=== PATIENT | male | born 1960 | race Hispanic/Latino ===

== ENCOUNTER 2022-04-16 00:01 | Observation (INO) | payer MEDICARE, SELFPAY ==
[2022-04-16] VITALS (59 sets, daily range): BP systolic 75–250; BP diastolic 46–160; PULSE 59–101; RESP 9–25; TEMP 36.1–36.6; O2SAT 91–99; BMI 34.7
--- NOTE | 2022-04-16 00:31 | ED_ITS ---
HPI - Abdominal Pain General Chief Complaint: Abdominal Pain Stated Complaint: ABD PAINS, CONSTIPATED Time Seen by Provider: 04/16/22 00:20 Source: patient Mode of arrival: Ambulatory History of Present Illness HPI narrative: Patient here for abdominal pain for the past 3 weeks. Patient was at [facility] Emergency Department for 2 days he states a week ago. For the same complaint. He left/eloped because he had difficulties with their staff and ordering food. He did not complete his workup or treatment there. Patient s tates he is having. Difficulty with daily bowel movements. He has to strain a lot to have bowel movement. He does have daily bowel movements though. Abdominal cramping is constant. He tried [id number] laxatives/MiraLax without improvement. Is not on any fiber enhancement. Denies any chest pain. Is not on any pain medications Blood pressure noted. He states this is not uncommon. It waxes and wanes. Denies any chest pain or headache or any neuro complaints at this time. He does have cardiac stents. History of high blood pressure. He states he has been taking his blood pressure medications. Records from [facility] is being requested to fax here for his visit last week in the department. Patient states he has been taking his blood pressure medications. Has not had any changes in his medication regimen. Related Data Allergies Allergy/AdvReac Type Severity Reaction Status Date / Time No Known Drug Allergies Allergy Verified 04/16/22 00:16 Review of Systems Review of Systems Narrative: GENERAL: Denies chills, fatigue, malaise, fever, sweats. HEENT: Denies sinus pain, ear pain, sore throat RESPIRATORY: Denies dyspnea, cough CARDIOVASCULAR: Denies chest pain, palpitations GASTROINTESTINAL: Denies nausea, vomiting, positive for constipation and abdominal pain : Denies dysuria, frequency, hematuria MUSCULOSKELETAL: denies muscle or bony pain SKIN: Denies rash, skin lesions NEUROLOGIC: Denies weakness, numbness ROS Unobtainable: All systems reviewed & are unremarkable except as noted in HPI and below Patient History Social History household members: none Smoking Status: Never smoker alcohol intake: current Smoking Status: Never smoker alcohol intake frequency: 3 or more drinks per day Alcohol type: beer Substance Use Type: does not use Exam Narrative Exam Narrative: GENERAL: in no distress, not toxic not dyspneic HEAD: Normocephalic. EYES: Pupils equal round No scleral icterus. ENT: Mucous membranes moist. NECK: Trachea midline. CARDIOVASCULAR: Regular rate and rhythm without murmurs RESPIRATORY: Clear to auscultation. Breath sounds equal bilaterally. No wheezes, rales, or rhonchi. GASTROINTESTINAL: Abdomen soft, non-tender, abdomen is slightly distended but patient appears to have enlarged pannus at baseline likely. Bowel sounds are present. No peritoneal signs. No pain out of proportion to exam. Abdomen is soft EXTREMITIES: No gross deformities. BACK: No flank tenderness. NEURO: AOx4. SKIN: Warm and dry PSYCH: Not anxious, is cooperative Initial Vital Signs Initial Vital Signs: Vital Signs Pulse Rate 101 H 04/16/22 00:13 Respiratory Rate 20 04/16/22 00:13 Blood Pressure 250/112 H 04/16/22 00:13 Pulse Oximetry 95 04/16/22 00:13 Oxygen Delivery Method 04/16/22 00:13 Course Course Course Narrative: No new issues during course of stay Decision to Admit Date: 04/16/22 Decision to Admit time: 00:59 Orders Ordered: ED Orders 04/16/22 EC echo doppler complete Stat stress [NM ellie perf SPECT rest & str] Stat 04/16/22 00:22 Complete Blood Count AUTO DIFF Stat Comprehensive Metabolic Panel Stat Lipase Stat Magnesium Urgent NT-proBNP (BNP-Adult 18+) Urgent 04/16/22 00:48 CT abdomen pelvis wo con Stat 04/16/22 00:53 XR chest 1V Stat 04/16/22 01:05 COVID19 -Nasal RAPID/Pre-Proc Stat Troponin & CK Cardiac Panel Stat 04/16/22 01:06 EKG-12 Lead Stat 04/16/22 02:45 Troponin & CK Cardiac Panel Stat 04/16/22 04:52 Consult to Tele-adhesive bandage making operator Routine 04/16/22 04:55 Education, smoking cessation ONGOING 04/16/22 04:58 Consult to Dietitian, Adult Routine 04/16/22 04:59 Consult to Discharge Planning Routine 04/16/22 06:05 Prothrombin Time INR Routine Trop I [Troponin I] Routine Acetaminophen (Acetaminophen 325 Mg Tablet) 650 mg PO Q6HR PRN PRN Reason: Fever/Mild Pain (1-3) Al Hydrox/Mg Hydrox/Simethicone (Mag Hydrox/Alum/Simeth 30 Ml Udc) 30 ml PO Q6HR PRN PRN Reason: Dyspepsia Nicardipine HCl 25 mg/ Sodium (Chloride) 250 mls @ 50 mls/hr IV TITRATE JADYN; Protocol Last Admin: 04/16/22 04:21 Dose: 5 mg/hr, 50 mls/hr Documented By: EB Lidocaine (Lidocaine Patch 1 Each Adh..Patch) 1 each TOP DAILY JADYN Last Admin: 04/16/22 04:45 Dose: 1 each Documented By: EB Ondansetron HCl (Ondansetron 4 Mg Odt) 4 mg PO Q8HR PRN PRN Reason: Nausea And Vomiting Discontinued Medications Hydralazine HCl (Hydralazine 20 Mg/Ml Vial) 10 mg IV NOW ONE Stop: 04/16/22 00:58 Last Admin: 04/16/22 01:00 Dose: 10 mg Documented By: EB Hydromorphone HCl (Hydromorphone 0.5 Mg Inj) 0.5 mg IV NOW ONE Stop: 04/16/22 04:38 Last Admin: 04/16/22 04:45 Dose: 0.5 mg Documented By: EB Sodium Chloride (Normal Saline 0.9%) 1,000 mls @ 1,000 mls/hr IV BOLUS ONE Stop: 04/16/22 01:29 Morphine Sulfate (Morphine 4 Mg/Ml Inj) 4 mg IV NOW ONE Stop: 04/16/22 02:49 Last Admin: 04/16/22 02:51 Dose: 4 mg Documented By: EB Nitroglycerin (Nitroglycerin Oint 1 Inch/Gm Oint...G.) 1 inch TOP NOW ONE Stop: 04/16/22 03:50 Last Admin: 04/16/22 03:53 Dose: 1 inch Documented By: DKBonnie Reevaluation(s) Reevaluation #1: Blood pressure improved with hydralazine. 208/93 with pulse of 92. Patient achieving desired MAP goal Time: 02:00 Consultations Consultation #1: Spoke with hospitalist, Wilma Patricio, will admit patient. Meets ICU criteria with Cardene drip Vital Signs Vital signs: Vital Signs - 8 hr 04/16/22 00:13 04/16/22 00:53 04/16/22 00:50 Pulse Rate 101 H 95 H Respiratory Rate 20 Blood Pressure 250/112 H 239/135 H Pulse Oximetry 95 98 Oxygen Delivery Method Room Air 04/16/22 01:00 04/16/22 01:00 04/16/22 01:00 Pulse Rate 89 Respiratory Rate Blood Pressure 235/135 H 235/135 H Pulse Oximetry 97 Oxygen Delivery Method 04/16/22 01:18 04/16/22 01:18 04/16/22 01:30 Pulse Rate 99 H Respiratory Rate Blood Pressure 225/115 H 208/93 H Pulse Oximetry 98 Oxygen Delivery Method 04/16/22 01:30 04/16/22 02:00 04/16/22 02:00 Pulse Rate 92 H 84 Respiratory Rate Blood Pressure 198/105 H Pulse Oximetry 98 96 Oxygen Delivery Method 04/16/22 02:30 04/16/22 02:30 04/16/22 03:53 Pulse Rate 75 74 Respiratory Rate Blood Pressure 190/95 H 210/124 H Pulse Oximetry 95 Oxygen Delivery Method 04/16/22 02:00 04/16/22 03:00 04/16/22 03:00 Pulse Rate 87 85 Respiratory Rate Blood Pressure 198/105 H 189/112 H Pulse Oximetry 96 Oxygen Delivery Method 04/16/22 03:30 04/16/22 03:30 04/16/22 04:00 Pulse Rate 81 Respiratory Rate Blood Pressure 210/124 H 203/160 H Pulse Oximetry 96 Oxygen Delivery Method 04/16/22 04:00 04/16/22 04:30 04/16/22 04:33 Pulse Rate 81 86 Respiratory Rate 24 Blood Pressure 227/121 H Pulse Oximetry 97 98 Oxygen Delivery Method 04/16/22 04:33 04/16/22 04:40 04/16/22 04:40 Pulse Rate 89 85 Respiratory Rate 18 17 Blood Pressure 191/96 H Pulse Oximetry 98 97 Oxygen Delivery Method 04/16/22 05:00 04/16/22 05:00 04/16/22 05:10 Pulse Rate 86 80 Respiratory Rate Blood Pressure 169/101 H Pulse Oximetry 95 95 Oxygen Delivery Method 04/16/22 05:10 04/16/22 05:20 04/16/22 05:20 Pulse Rate 78 Respiratory Rate Blood Pressure 162/100 H 163/98 H Pulse Oximetry 94 Oxygen Delivery Method 04/16/22 05:30 04/16/22 05:30 04/16/22 05:40 Pulse Rate 79 Respiratory Rate Blood Pressure 159/91 H 156/92 H Pulse Oximetry 94 Oxygen Delivery Method 04/16/22 05:40 Pulse Rate 79 Respiratory Rate Blood Pressure Pulse Oximetry 94 Oxygen Delivery Method MDM - Abdominal Pain Differential Diagnosis Differential diagnosis: Likely abdominal pain, constipation, diverticulitis, pancreatitis, small bowel obstruction and other (Hypertensive urgency) Medical Records Medical records narrative: I did review faxed records from [facility] Emergency Department. Patient was there for abdominal pain and right-sided chest pain. Patient did have brief hypotension with IV contrast CT but resolved spontaneously. The concern for patient's extended stay and was actually admitted to hospitalist for hypertensive urgency. There were no beds available and patient was boarded in the emergency department Troponin was slightly elevated at that visit. However likely related to high blood pressure. Lab Data Result diagrams: 04/16/22 00:22 04/16/22 00:22 Labs: Lab Results 04/16/22 04/16/22 04/16/22 Range/Units 00: 00:22 00:22 WBC 7.6 (4.5-11.0) X10^3/uL RBC 5.12 (4.5-5.9) X10^6/uL Hgb 16.2 (13.5-17.5) g/dL Hct 46.0 (41-53) % MCV 89.9 (80-100) fL MCH 31.7 (26-34) PG MCHC 35.3 (30-36) % RDW 13.5 (11.6-14.8) % Plt Count 265 (150-400) X10^3/uL Neut % (Auto) 71.8 (50-75) % Lymph % (Auto) 18.3 L (25-40) % [place] % (Auto) 8.0 (3-14) % Eos % (Auto) 1.3 L (2-4) % Baso % (Auto) 0.6 (0-2) % Neut # (Auto) 5400 (4288-4642) /uL Lymph # (Auto) 1400 (4609-6848) /uL [place] # (Auto) 600 (0-900) /uL Eos # (Auto) 100 (0-450) /uL Baso # (Auto) 0 (0-100) /uL Sodium 138 (137-145) mmol/L Potassium 3.8 (3.4-5.1) mmol/L Chloride 103 (98-107) mmol/L Carbon Dioxide 24 (22-32) mmol/L BUN 20 (9-20) mg/dL Creatinine 0.81 (0.66-1.25) mg/dL Estimated GFR > 60 (>60) mL/min BUN/Creatinine Ratio 24.7 H (6-22) Glucose 167 H (80-110) mg/dL Calcium 8.7 (8.4-10.2) mg/dL Magnesium 2.1 (1.6-2.3) mg/dL Total Bilirubin 0.9 (0.2-1.3) mg/dL AST 54 (17-59) IU/L ALT 68 H (<50) IU/L Alkaline Phosphatase 164 H (38-126) U/L Total Creatine Kinase (55-170) U/L CK-MB (CK-2) CK-MB (CK-2) Rel Index Troponin I (0.01-0.034) ng/mL NT-Pro-B Natriuret Pep (<125) pg/mL Total Protein 7.8 (6.3-8.2) g/dL Albumin 4.5 (3.5-5.0) g/dL Globulin 3.3 (1.7-4.1) g/dL Albumin/Globulin Ratio 1.4 (1.0-2.8) Lipase 73 (23-300) U/L SARS-CoV-2 (PCR) (Negative) 04/16/22 04/16/22 04/16/22 Range/Units 00:22 01:05 01:05 WBC (4.5-11.0) X10^3/uL RBC (4.5-5.9) X10^6/uL Hgb (13.5-17.5) g/dL Hct (41-53) % MCV (80-100) fL MCH (26-34) PG MCHC (30-36) % RDW (11.6-14.8) % Plt Count (150-400) X10^3/uL Neut % (Auto) (50-75) % Lymph % (Auto) (25-40) % [place] % (Auto) (3-14) % Eos % (Auto) (2-4) % Baso % (Auto) (0-2) % Neut # (Auto) (6259-2912) /uL Lymph # (Auto) (1669-4565) /uL [place] # (Auto) (0-900) /uL Eos # (Auto) (0-450) /uL Baso # (Auto) (0-100) /uL Sodium (137-145) mmol/L Potassium (3.4-5.1) mmol/L Chloride (98-107) mmol/L Carbon Dioxide (22-32) mmol/L BUN (9-20) mg/dL Creatinine (0.66-1.25) mg/dL Estimated GFR (>60) mL/min BUN/Creatinine Ratio (6-22) Glucose (80-110) mg/dL Calcium (8.4-10.2) mg/dL Magnesium (1.6-2.3) mg/dL Total Bilirubin (0.2-1.3) mg/dL AST (17-59) IU/L ALT (<50) IU/L Alkaline Phosphatase (38-126) U/L Total Creatine Kinase 97 (55-170) U/L CK-MB (CK-2) TNP CK-MB (CK-2) Rel Index TNP Troponin I 0.035 H (0.01-0.034) ng/mL NT-Pro-B Natriuret Pep 648 H (<125) pg/mL Total Protein (6.3-8.2) g/dL Albumin (3.5-5.0) g/dL Globulin (1.7-4.1) g/dL Albumin/Globulin Ratio (1.0-2.8) Lipase (23-300) U/L SARS-CoV-2 (PCR) Negative (Negative) 04/16/22 Range/Units 02:45 WBC (4.5-11.0) X10^3/uL RBC (4.5-5.9) X10^6/uL Hgb (13.5-17.5) g/dL Hct (41-53) % MCV (80-100) fL MCH (26-34) PG MCHC (30-36) % RDW (11.6-14.8) % Plt Count (150-400) X10^3/uL Neut % (Auto) (50-75) % Lymph % (Auto) (25-40) % [place] % (Auto) (3-14) % Eos % (Auto) (2-4) % Baso % (Auto) (0-2) % Neut # (Auto) (5476-1121) /uL Lymph # (Auto) (4396-9625) /uL [place] # (Auto) (0-900) /uL Eos # (Auto) (0-450) /uL Baso # (Auto) (0-100) /uL Sodium (137-145) mmol/L Potassium (3.4-5.1) mmol/L Chloride (98-107) mmol/L Carbon Dioxide (22-32) mmol/L BUN (9-20) mg/dL Creatinine (0.66-1.25) mg/dL Estimated GFR (>60) mL/min BUN/Creatinine Ratio (6-22) Glucose (80-110) mg/dL Calcium (8.4-10.2) mg/dL Magnesium (1.6-2.3) mg/dL Total Bilirubin (0.2-1.3) mg/dL AST (17-59) IU/L ALT (<50) IU/L Alkaline Phosphatase (38-126) U/L Total Creatine Kinase 92 (55-170) U/L CK-MB (CK-2) TNP CK-MB (CK-2) Rel Index TNP Troponin I 0.041 H (0.01-0.034) ng/mL NT-Pro-B Natriuret Pep (<125) pg/mL Total Protein (6.3-8.2) g/dL Albumin (3.5-5.0) g/dL Globulin (1.7-4.1) g/dL Albumin/Globulin Ratio (1.0-2.8) Lipase (23-300) U/L SARS-CoV-2 (PCR) (Negative) Point of care testing: Urine Dip Bedside Urine Glucose 100 mg/dl Bedside Urine Bilirubin - Negative Bedside Urine Ketone +/- 5 Urine Specific [place] 1.025 Bedside Urine Occult Blood +/- Bedside Urine pH 6 Bedside Urine Protein - Negative Bedside Urine Urobilinogen - Negative Bedside Urine Nitrite - Negative Bedside Urine Leukocytes - Negative Esterase Imaging Data CT scan - abdomen/pelvis: Radiologist's Impression: [place] [id number] CT Scan Report Signed Patient: Morgan Lai MR#: [id number] : 1960 Acct:[id number] Age/Sex: 62 / M Date of Service: 04/16/22 Loc: ED Accession Number: [id number] ?? Procedure: CT abdomen pelvis wo con Ordering Provider: Raghu Shi MD PROCEDURE:? CT ABDOMEN PELVIS WO CON ? INDICATIONS:? Abdominal pain ? TECHNIQUE:? Axial sections were acquired from the lung bases to the pubic symphysis.? Coronal and sagittal reformats were performed.? For radiation dose reduction, the following was used: ?automated exposure control, adjustment of mA and/or kV according to patient size.? ? COMPARISON:? [facility], CT, CT ABDOMEN PELVIS WITH CONTRAST, 04/09/2022, 8:28. ? FINDINGS:? Image quality:? Excellent.? ? Lung bases:? There is mild scarring in the left lung base. Heart:? Heart is normal in size. ? ? ABDOMEN: Liver:? Noncontrast evaluation of the liver demonstrates no discrete hepatic mass. Gallbladder:? Within normal limits without calcified gallstones.? ? Biliary ducts:? No biliary ductal dilatation.? ? Pancreas:? Unremarkable.? ? Spleen:? Normal in size.? ? Adrenal Glands:? No adrenal nodules.? ? Kidneys and Ureters:? No hydronephrosis.? A small cortical cyst is redemo nstrated within the right kidney.? There is mild focal renal cortical thinning in the left kidney with associated curvilinear dystrophic calcifications.? Findings are consistent with sequelae of prior infection, trauma, or infarct.? ? Stomach and Bowel:? Stomach, small bowel loops, and colon are normal in caliber and wall thickness.? No evidence of appendicitis.? There is colonic diverticulosis wi thout acute diverticulitis.? Peritoneum:? No abnormal intraperitoneal fluid.? No free air.? ? Ventral Wall: ? A small fat-containing umbilical hernia is redemonstrated. Abdominal Nodes:? No retroperitoneal or mesenteric adenopathy by size criteria.? Vessels:? Aorta and inferior vena cava are normal in size.? ? PELVIS: Pelvic Organs:? Unremarkable.? ? Bladder:? Unremarkable.? ? Pelvic Nodes: No enlarged lymph nodes.? Miscellaneous: No inguinal hernias are seen. ? ? ? Bones:? Visualized osseous structures demonstrate no suspicious focal lesions. IMPRESSION:? ? 1. No definite acute intra-abdominal abnormality.? Specifically, no evidence of nephrolithiasis or obstructive uropathy. ? 2. No evidence of acute appendicitis. ? 3. Small fat-containing umbilical hernia redemonstrated.? Dictated by: Keith Miranda M.D. on 04/16/2022 at 1:34 ? ? Approved by: Ketih Miranda M.D. on 04/16/2022 at 1:39 ? Chest x-ray: Radiologist's Impression: [address] [id number] XRay Report Signed Patient: Morgan Lai MR#: [id number] : 1960 Acct:[id number] Age/Sex: 62 / M Date of Service: 04/16/22 Loc: ED Accession Number: [id number] ?? Procedure: XR chest 1V Ordering Provider: Raghu Shi MD PROCEDURE:? XR CHEST 1V ? INDICATIONS:? chest pain ? TECHNIQUE:? One view of the chest was acquired.? ? COMPARISON:? [facility], CR, XR CHEST 1 VIEW, 10/30/2019, 21:18.? [facility], CR, XR CHEST 1 VIEW, 11/07/2020, 4:12.? [facility], CT, CT ANGIO CHEST PE, 10/30/2019, 22:35.? [facility], CR, XR CHEST 1 VIEW, 04/09/2022, 9:11. ? FINDINGS:? ? Surgical changes and devices:? None.? ? Lungs and pleura:? There is a nodular oval opacity projecting over the left upper lung zone measuring up to 1.4 cm redemonstrated.? Findings are similar compared to the prior studies.? No pleural effusions or pneumothorax.? ? Mediastinum:? Mediastinal contours appear normal.? Heart size is normal.? ? Bones and chest wall:? No suspicious bony lesions.? Overlying soft tissues appear unremarkable.? ? IMPRESSION:? ? 1. No definite acute cardiopulmonary disease. ? 2. Nodular opacity in the left upper lung zone appears similar to the prior studies. ? ? Dictated by: Keith Miranda M.D. on 04/16/2022 at 1:44 ? ? Approved by: Keith Miranda M.D. on 04/16/2022 at 1:54 ? ECG Data Interpretation: Normal sinus rhythm rate [address] elevation MDM Narrative Medical decision making narrative: Appropriate for admission for hypertensive urgency. Patient left against medical advice a week ago from [facility] Emergency Department. Recommendations for blood pressure control at the time by hospitalist with hydralazine 10 mg dosing. Patient does agree for admit. Patient has significant coronary artery disease history. Review of patient's troponin. This is patient's baseline. This result is the same as at [facility] week ago. Likely due to high blood pressure and not coronary. Patient meeting criteria for ICU with Maricruz bullard Critical Care Time Critical Care Time Total Critical Care Time: 35 Attestation: Critical Care Time 35 minutes: Critical care time is separate from other billable procedures. This critical care time includes consultation with family and other consulting doctors, review of records, and interpretation of data from labs, EKGs, imaging, etc. Discharge Plan Departure Patient Disposition: Admitted as Observation Clinical Impression: Hypertensive urgency, Abdominal pain Admit Date/Time: 04/16/22 05:44 Admit Provider: Wilma Patricio
[2022-04-16 00:42] LABS: Alanine Aminotransferase 68 IU/L (<50); Albumin 4.5 g/dL (3.5-5.0); Albumin Globulin Ratio 1.4 (1.0-2.8); Alkaline Phosphatase 164 U/L (38-126); Aspartate Aminotransferase 54 IU/L (17-59); BUN Creatinine Ratio 24.7 (6-22); Bilirubin Total 0.9 mg/dL (0.2-1.3); Blood Urea Nitrogen 20 mg/dL (9-20); Calcium 8.7 mg/dL (8.4-10.2); Carbon Dioxide 24 mmol/L (22-32); Chloride 103 mmol/L (98-107); Estimated Glomerular Filt Rate > 60 mL/min (>60); Globulin 3.3 g/dL (1.7-4.1); Glucose 167 mg/dL (80-110); HEMOLYSIS 44 (0-50); Lipase 73 U/L (23-300); Potassium 3.8 mmol/L (3.4-5.1); Sodium 138 mmol/L (137-145); Total Protein 7.8 g/dL (6.3-8.2)
[2022-04-16 00:43] LABS: Add Manual Diff / Slide Review NO; Basophils Absolute Auto 0 /uL (0-100); Basophils Percent Auto 0.6 % (0-2); Eosinophils Absolute Auto 100 /uL (0-450); Eosinophils Percent Auto 1.3 % (2-4); Hemoglobin 16.2 g/dL (13.5-17.5); Lymphocytes Absolute Auto 1400 /uL (1100-4500); Lymphocytes Percent Auto 18.3 % (25-40); Mean Corpuscular HGB Conc 35.3 % (30-36); Mean Corpuscular Hemoglobin 31.7 PG (26-34); Mean Corpuscular Volume 89.9 fL (80-100); Monocytes Absolute Auto 600 /uL (0-900); Neutrophils Absolute Auto 5400 /uL (1500-7000); Neutrophils Percent Auto 71.8 % (50-75); Platelet Count 265 X10^3/uL (150-400); Red Blood Cell Count 5.12 X10^6/uL (4.5-5.9); Red Cell Distribution Width 13.5 % (11.6-14.8); White Blood Cell Count 7.6 X10^3/uL (4.5-11.0)
--- NOTE | 2022-04-16 00:48 | DI.CT.S_ITS ---
PROCEDURE: CT ABDOMEN PELVIS WO CON INDICATIONS: Abdominal pain TECHNIQUE: Axial sections were acquired from the lung bases to the pubic symphysis. Coronal and sagittal reformats were performed. For radiation dose reduction, the following was used: automated exposure control, adjustment of mA and/or kV according to patient size. COMPARISON: [facility], CT, CT ABDOMEN PELVIS WITH CONTRAST, 04/09/2022, 8:28. FINDINGS: Image quality: Excellent. Lung bases: There is mild scarring in the left lung base. Heart: Heart is normal in size. ABDOMEN: Liver: Noncontrast evaluation of the liver demonstrates no discrete hepatic mass. Gallbladder: Within normal limits without calcified gallstones. Biliary ducts: No biliary ductal dilatation. Pancreas: Unremarkable. Spleen: Normal in size. Adrenal Glands: No adrenal nodules. Kidneys and Ureters: No hydronephrosis. A small cortical cyst is redemonstrated within the right kidney. There is mild focal renal cortical thinning in the left kidney with associated curvilinear dystrophic calcifications. Findings are consistent with sequelae of prior infection, trauma, or infarct. Stomach and Bowel: Stomach, small bowel loops, and colon are normal in caliber and wall thickness. No evidence of appendicitis. There is colonic diverticulosis without acute diverticulitis. Peritoneum: No abnormal intraperitoneal fluid. No free air. Ventral Wall: A small fat-containing umbilical hernia is redemonstrated. Abdominal Nodes: No retroperitoneal or mesenteric adenopathy by size criteria. Vessels: Aorta and inferior vena cava are normal in size. PELVIS: Pelvic Organs: Unremarkable. Bladder: Unremarkable. Pelvic Nodes: No enlarged lymph nodes. Miscellaneous: No inguinal hernias are seen. Bones: Visualized osseous structures demonstrate no suspicious focal lesions. IMPRESSION: 1. No definite acute intra-abdominal abnormality. Specifically, no evidence of nephrolithiasis or obstructive uropathy. 2. No evidence of acute appendicitis. 3. Small fat-containing umbilical hernia redemonstrated. Dictated by: Keith Miranda M.D. on 04/16/2022 at 1:34 Approved by: Keith Miranda M.D. on 04/16/2022 at 1:39
--- NOTE | 2022-04-16 00:53 | DI.RAD.S_ITS ---
PROCEDURE: XR CHEST 1V INDICATIONS: chest pain TECHNIQUE: One view of the chest was acquired. COMPARISON: [facility], CR, XR CHEST 1 VIEW, 10/30/2019, 21:18. [facility], CR, XR CHEST 1 VIEW, 11/07/2020, 4:12. [facility], CT, CT ANGIO CHEST PE, 10/30/2019, 22:35. [facility], CR, XR CHEST 1 VIEW, 04/09/2022, 9:11. FINDINGS: Surgical changes and devices: None. Lungs and pleura: There is a nodular oval opacity projecting over the left upper lung zone measuring up to 1.4 cm redemonstrated. Findings are similar compared to the prior studies. No pleural effusions or pneumothorax. Mediastinum: Mediastinal contours appear normal. Heart size is normal. Bones and chest wall: No suspicious bony lesions. Overlying soft tissues appear unremarkable. IMPRESSION: 1. No definite acute cardiopulmonary disease. 2. Nodular opacity in the left upper lung zone appears similar to the prior studies. Dictated by: Keith Miranda M.D. on 04/16/2022 at 1:44 Approved by: Keith Miranda M.D. on 04/16/2022 at 1:54
--- NOTE | 2022-04-16 00:54 | PC.NURSE ---
Friend Angelaandie anderson phone number: [phone]
[2022-04-16] MEDS: HYDRALAZINE 20 MG/ML VIAL 10 MG IV (01:00)
[2022-04-16 01:21] LABS: Creatine Kinase 97 U/L (55-170)
[2022-04-16 01:34] LABS: Troponin I 0.035 ng/mL (0.01-0.034)
[2022-04-16 01:57] LABS: COVID19 -Nasal RAPID Negative (Negative)
[2022-04-16] MEDS: MORPHINE 4 MG/ML INJ IV (02:51)
[2022-04-16 03:13] LABS: Creatine Kinase 92 U/L (55-170)
[2022-04-16 03:26] LABS: Troponin I 0.041 ng/mL (0.01-0.034)
[2022-04-16] MEDS: NITROGLYCERIN OINT 1 INCH/GM OINT...G. TOP (03:53)
[2022-04-16] MEDS: NICARDIPINE 25 MG in SODIUM CHLORIDE 0.9% 240 ML 50 MG IV (04:21)
[2022-04-16] MEDS: HYDROMORPHONE 0.5 MG INJ IV (04:45)
[2022-04-16] MEDS: LIDOCAINE PATCH 1 EACH ADH..PATCH TOP ×2 (04:45→08:56)
[2022-04-16 05:25] LABS: Magnesium 2.1 mg/dL (1.6-2.3)
[2022-04-16 05:34] LABS: NT-proBNP (BNP-Adult 18+) 648 pg/mL (<125)
[2022-04-16 06:26] LABS: INR 1.1 (0.9-1.3); Prothrombin Time 12.5 SECONDS (10.1-12.7)
[2022-04-16 06:41] LABS: Troponin I 0.047 ng/mL (0.01-0.034)
--- NOTE | 2022-04-16 06:58 | PC.NURSE ---
Patient admitted to Room 231 via [place] from ED. Nicardipine drip infusing at 5 mg/hr SBP greater than 200 and MAP 133. Goal MAP 126. Patient states pain medication given in ED was not very helpful with reducing pain. Patient alert and oriented x3. Patient oriented to hospital routine, equipment and policies. Lidocaine patch in place to R abdomen.
[2022-04-16] MEDS: lisinopriL 20 MG TABLET 40 MG PO (08:56)
[2022-04-16] MEDS: polyethylene glycoL 3350 17 GM POWD.PACK PO (08:56)
[2022-04-16] MEDS: BISACODYL 5 MG TABLET PO (08:57)
[2022-04-16] MEDS: OXYCODONE IR 10 MG TABLET PO ×2 (08:57→20:46)
--- NOTE | 2022-04-16 10:36 | PM.HP.1 ---
History of Present Illness History of Present Illness Date Patient Seen: 04/16/22 Time Patient Seen: 10:36 Chief complaint: ABD PAINS, CONSTIPATED Narrative: This is a 62-year-old male with a past medical history of CAD, hypertension who presented to the emergency room with epigastric and right upper quadrant pain over the past 3 weeks. Patient states that his symptoms started after a fall 3 weeks ago where he fell and landed in a hole on his back. He describes the as intermittent, sharp but also band like over his epigastrium. There is no radiation into his neck or jaw and is not associated with any substernal chest pain or chest pressure. He denies any palpitations, nausea, vomiting, diaphoresis, or lightheadedness. He reports previous visits to emergency rooms with elevated BP for the same symptoms. Prior evaluations per review include negative radiographs of his right ribs and abdomen on March 25, and unremarkable x-rays of his chest, ribs, thoracic spine, and an unremarkable CT abdomen pelvis on April 09. He states symptoms have continued. He states his BP is always high at home around 180 to 200. He states he takes his home medications regularly. In the emergency room here the patient had a an unremarkable CT of his abdomen pelvis again, and a chest x-ray that showed no acute pathology. In the emergency room he was hypertensive, but the remainder of his vital signs were unremarkable. He was given a single dose of hydralazine which did not help his BP improve, he was also given some pain medications. He was quickly started on a nicardipine infusion and admitted to the ICU. After my evaluation, I re-ordered an oral BP medication and stopped cardene infusion given no obvious signs of hypertensive emergency. EKG does show some ST depressions but these are unchanged on repeat and no prior tracings were available for review. Troponin did increase slightly but still in intermediate range at 0.04 and patient without symptoms other than epigastric / RUQ abdominal pain which was reproducible on exam. Patient History Medical History (Updated 04/16/22 @ 10:38 by Amor Mcnamara DO) CAD (coronary artery disease) HTN (hypertension) Surgical History (Updated 04/16/22 @ 10:38 by Amor Mcnamara DO) H/O heart artery stent History of appendectomy Family & Social History Family History (Updated 04/16/22 @ 10:39 by Amor Mcnamara DO) Brother Diabetes mellitus Father Diabetes mellitus Mother Diabetes mellitus Social History: household members none Prior Living Arrangements Mobile home Safety & Behavioral: Feels Safe in Current Yes Environment Been Physically Hurt or No Threatened By a Person Tobacco & Substance use: Smoking Status Never smoker alcohol intake current alcohol intake frequency 3 or more drinks per day Substance Use Type does not use Meds Home Medications and Allergies Home Medications Medication Instructions Recorded Confirmed Type amlodipine 10 mg PO DAILY 04/16/22 04/16/22 History aspirin 325 mg tablet 325 mg PO DAILY 04/16/22 04/16/22 History atorvastatin 80 mg tablet 80 mg PO DAILY 04/16/22 04/16/22 History chlorthalidone 12.5 mg PO DAILY 04/16/22 04/16/22 History clopidogrel 75 mg PO DAILY 04/16/22 04/16/22 History gabapentin 300 mg tablet 300 mg PO TID 04/16/22 04/16/22 History glipizide 10 mg tablet 10 mg PO BID 04/16/22 04/16/22 History isosorbide mononitrate 30 mg 30 mg PO DAILY 04/16/22 04/16/22 History tablet,extended release 24 hr losartan 50 mg tablet 50 mg PO DAILY 04/16/22 04/16/22 History metformin 500 mg tablet 1,000 mg PO BID 04/16/22 04/16/22 History metoprolol succinate 100 mg 100 mg PO BID 04/16/22 04/16/22 History tablet,extended release 24 hr nitroglycerin 0.4 mg sublingual 0.4 mg sublingual Q5M PRN Chest 04/16/22 04/16/22 History tablet (Nitrostat) Pain pantoprazole 40 mg tablet,delayed 40 mg PO DAILY 04/16/22 04/16/22 History release Allergies Allergy/AdvReac Type Severity Reaction Status Date / Time No Known Drug Allergies Allergy Verified 04/16/22 00:16 Review of Systems Review of Systems Narrative: All other systems reviewed with the patient and are negative unless otherwise stated. Exam Vital Signs (past 8 hours): - 04/16/22 03:53 04/16/22 03:00 04/16/22 03:00 Temperature Pulse Rate 74 85 Respiratory Rate Blood Pressure 210/124 H 189/112 H Pulse Oximetry 96 04/16/22 03:30 04/16/22 03:30 04/16/22 04:00 Temperature Pulse Rate 81 Respiratory Rate Blood Pressure 210/124 H 203/160 H Pulse Oximetry 96 04/16/22 04:00 04/16/22 04:30 04/16/22 04:33 Temperature Pulse Rate 81 86 Respiratory Rate 24 Blood Pressure 227/121 H Pulse Oximetry 97 98 04/16/22 04:33 04/16/22 04:40 04/16/22 04:40 Temperature Pulse Rate 89 85 Respiratory Rate 18 17 Blood Pressure 191/96 H Pulse Oximetry 98 97 04/16/22 05:00 04/16/22 05:00 04/16/22 05:10 Temperature Pulse Rate 86 80 Respiratory Rate Blood Pressure 169/101 H Pulse Oximetry 95 95 04/16/22 05:10 04/16/22 05:20 04/16/22 05:20 Temperature Pulse Rate 78 Respiratory Rate Blood Pressure 162/100 H 163/98 H Pulse Oximetry 94 04/16/22 05:30 04/16/22 05:30 04/16/22 05:40 Temperature Pulse Rate 79 Respiratory Rate Blood Pressure 159/91 H 156/92 H Pulse Oximetry 94 04/16/22 05:40 04/16/22 05:59 04/16/22 05:59 Temperature Pulse Rate 79 92 H Respiratory Rate 20 Blood Pressure 228/112 H Pulse Oximetry 94 99 04/16/22 06:00 04/16/22 06:03 04/16/22 06:03 Temperature Pulse Rate 92 H 91 H Respiratory Rate 15 19 Blood Pressure 208/98 H Pulse Oximetry 99 97 04/16/22 06:15 04/16/22 06:15 04/16/22 06:30 Temperature 97.8 F Pulse Rate 86 Respiratory Rate 15 Blood Pressure 188/93 H 183/82 H Pulse Oximetry 96 04/16/22 06:30 04/16/22 06:45 04/16/22 06:45 Temperature Pulse Rate 83 83 Respiratory Rate 19 20 Blood Pressure 169/91 H Pulse Oximetry 96 94 04/16/22 07:00 04/16/22 07:15 04/16/22 07:30 Temperature Pulse Rate 80 79 81 Respiratory Rate 16 19 19 Blood Pressure 172/89 H 171/87 H Pulse Oximetry 94 94 94 04/16/22 07:31 04/16/22 08:00 04/16/22 08:56 Temperature 97.5 F L Pulse Rate 80 77 Respiratory Rate 21 Blood Pressure 150/72 H 158/70 H Pulse Oximetry 94 04/16/22 07:45 04/16/22 08:00 04/16/22 08:15 Temperature Pulse Rate 86 78 72 Respiratory Rate 16 13 17 Blood Pressure 166/87 H 152/84 H 158/74 H Pulse Oximetry 96 96 94 04/16/22 08:30 04/16/22 08:45 04/16/22 09:00 Temperature Pulse Rate 87 82 82 Respiratory Rate 15 16 18 Blood Pressure 159/73 H 158/70 H 151/65 H Pulse Oximetry 97 93 94 04/16/22 09:15 04/16/22 09:30 04/16/22 09:30 Temperature Pulse Rate 75 67 Respiratory Rate 15 14 Blood Pressure 116/49 L 99/46 L Pulse Oximetry 93 94 04/16/22 09:45 04/16/22 09:45 Temperature Pulse Rate 79 Respiratory Rate 18 Blood Pressure 96/52 L Pulse Oximetry 96 Oxygen Delivery Method Room Air Narrative Exam Narrative: General:? Patient is well developed and well nourished, in no distress at this time. HEENT:? Normocephalic, atraumatic, extraocular muscles intact, oral pharynx is clear and mucous membranes are moist. Neck: supple and symmetric, trachea is midline, no cervical adenopathy. Negative for JVD Chest:? Normal AP diameter and contour without kyphoscoliosis, no tachypnea, equal chest rise bilaterally. Lungs:? CTA b/l no wheezing rhonchi or rales. Cardio:?RRR no m/r/g. Abdomen:soft, mild distension, RUQ and point lateral tenderness over ribs with reproducible pain. Musculoskeletal:? Muscle strength and tone are equal within normal limits, no deformity. Extremities: No edema or joint effusions. No cyanosis or clubbing. Skin:? Pale,? Warm to touch,dry and intact without rashes, ulcerations or petechiae.? Neuro:? Alert and orientated x3,? sensation to touch intact in all extremities, no gross deficits noted of cranial nerves. Psych:? Patient has a well-kept appearance, appropriate affect, mental status attitude thought context and judgment are appropriate for age. Objective ECG Impression: Sinus rhythm. LVH with TWI in inferior leads and V5/6. Unchanged on repeat study as interpreted by me. Labs Result Diagrams: 04/16/22 00:22 04/16/22 00:22 Labs: Laboratory Results - last 24 hr 04/16/22 04/16/22 04/16/22 00:22 00:22 00:22 WBC 7.6 RBC 5.12 Hgb 16.2 Hct 46.0 MCV 89.9 MCH 31.7 MCHC 35.3 RDW 13.5 Plt Count 265 Neut % (Auto) 71.8 Lymph % (Auto) 18.3 L [place] % (Auto) 8.0 Eos % (Auto) 1.3 L Baso % (Auto) 0.6 Neut # (Auto) 5400 Lymph # (Auto) 1400 [place] # (Auto) 600 Eos # (Auto) 100 Baso # (Auto) 0 PT INR Sodium 138 Potassium 3.8 Chloride 103 Carbon Dioxide 24 BUN 20 Creatinine 0.81 Estimated GFR > 60 BUN/Creatinine Ratio 24.7 H Glucose 167 H Calcium 8.7 Magnesium 2.1 Total Bilirubin 0.9 AST 54 ALT 68 H Alkaline Phosphatase 164 H Total Creatine Kinase CK-MB (CK-2) CK-MB (CK-2) Rel Index Troponin I NT-Pro-B Natriuret Pep Total Protein 7.8 Albumin 4.5 Globulin 3.3 Albumin/Globulin Ratio 1.4 Lipase 73 SARS-CoV-2 (PCR) 04/16/22 04/16/22 04/16/22 00:22 01:05 01:05 WBC RBC Hgb Hct MCV MCH MCHC RDW Plt Count Neut % (Auto) Lymph % (Auto) [place] % (Auto) Eos % (Auto) Baso % (Auto) Neut # (Auto) Lymph # (Auto) [place] # (Auto) Eos # (Auto) Baso # (Auto) PT INR Sodium Potassium Chloride Carbon Dioxide BUN Creatinine Estimated GFR BUN/Creatinine Ratio Glucose Calcium Magnesium Total Bilirubin AST ALT Alkaline Phosphatase Total Creatine Kinase 97 CK-MB (CK-2) TNP CK-MB (CK-2) Rel Index TNP Troponin I 0.035 H NT-Pro-B Natriuret Pep 648 H Total Protein Albumin Globulin Albumin/Globulin Ratio Lipase SARS-CoV-2 (PCR) Negative 04/16/22 04/16/22 04/16/22 02:45 06:05 06:05 WBC RBC Hgb Hct MCV MCH MCHC RDW Plt Count Neut % (Auto) Lymph % (Auto) [place] % (Auto) Eos % (Auto) Baso % (Auto) Neut # (Auto) Lymph # (Auto) [place] # (Auto) Eos # (Auto) Baso # (Auto) PT 12.5 INR 1.1 Sodium Potassium Chloride Carbon Dioxide BUN Creatinine Estimated GFR BUN/Creatinine Ratio Glucose Calcium Magnesium Total Bilirubin AST ALT Alkaline Phosphatase Total Creatine Kinase 92 CK-MB (CK-2) TNP CK-MB (CK-2) Rel Index TNP Troponin I 0.041 H 0.047 H NT-Pro-B Natriuret Pep Total Protein Albumin Globulin Albumin/Globulin Ratio Lipase SARS-CoV-2 (PCR) Assessment & Plan Assessment & Plan narrative: 1. Intractable abdominal pain - check RUQ ultrasound, possibly biliary. Given mild rise in elevated troponin low likelihood of ACS given stable EKG tracing. Pain is reproducible as well suggesting musculoskeletal cause, also happened after a trauma. - multiple prior imaging studies without rib or other bony fractures on 03/25 and again on 04/09 at OSH. - No obvious injuries on imaging here - another possibilty may be GERD, gastroparesis or GI - possible constipation as well, start laxitive therapy. 2. Elevated troponin - likely in setting of hypertension with known CAD previously. - continue to trend until downtrending. - EKG does have some TWI but given history of CAD, no chest pain, and repeat study without changes this is likely chronic. 3. Essential hypertension - likely elevated BP in setting of pain, work on pain control and continue home medications. He is on 4 antihypertensive classes at home. - continue to adjust as needed. 4. Type 2 diabetes - check FS ACHS and provide sliding scale coverage for now, unknown control at this time. 5. CAD - continue home medications. Code: Full, surrogate is Clifford Lai DVT: Low risk, patient ambulatory Dispo: Admit observation, probable discharge home Time Spent With Patient Critical Care time: I spent a total of [] minutes of critical care time on this patient's care today; this time is exclusive of procedural time. Quality MIPS - Admit I confirm the patient?s Advance Care Plan is present, Code status is documented, Surrogate decision maker is in patient?s record [If Yes, STOP here]: Yes
[2022-04-16] MEDS: PANTOPRAZOLE DR 20 MG TABLET PO (12:09)
[2022-04-16] MEDS: HYDROMORPHONE 1 MG INJ IV ×3 (13:41→21:26)
--- NOTE | 2022-04-16 13:55 | DI.US.S_ITS ---
PROCEDURE: US ABDOMEN LIMITED INDICATIONS: RUQ PAIN TECHNIQUE: Real-time scanning was performed of the abdominal and retroperitoneal organs, with image documentation. COMPARISON: None. FINDINGS: Liver: The liver measures 19.0 cm in length and demonstrates increased echogenicity. Gallbladder: The gallbladder wall measures 1.5 mm in diameter. No stones, sludge, pericholecystic fluid, or sonographic Schultz sign. Biliary ducts: Intrahepatic bile ducts are non-dilated. The common hepatic duct measures 5.9 mm in diameter. The common bile duct was not visualized. Pancreas: The pancreas was not visualized due to bowel gas. IMPRESSION: 1. Increased hepatic echogenicity noted likely related to fatty infiltration of the liver but other sources of hepatocellular disease cannot be excluded. 2. No cholelithiasis or findings to suggest choledocholithiasis or acute cholecystitis. Of note, the common bile duct was not visualized. Dictated by: Rola Sotelo M.D. on 04/16/2022 at 16:41 Approved by: Rola Sotelo M.D. on 04/16/2022 at 16:43
[2022-04-16] MEDS: GABAPENTIN 300 MG CAPSULE PO ×2 (15:05→20:48)
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
[2022-04-16] MEDS: INSULIN LISPRO 100 UNIT/ML 3ML VIAL SUBCUT (17:33)
[2022-04-16] MEDS: SENNOSIDES 8.6 MG TABLET 17.2 MG PO (20:46)
[2022-04-16] MEDS: METOPROLOL ER 50 MG TABLET 100 MG PO (20:47)
[2022-04-16] MEDS: METOCLOPRAMIDE HCL 10 MG TABLET PO (20:48)
[2022-04-16] MEDS: SODIUM CHLORIDE 0.9% FLUSH 10 ML IV (20:54)
[2022-04-17] VITALS (7 sets, daily range): BP systolic 98–151; BP diastolic 55–98; PULSE 56–80; RESP 12–20; TEMP 36.7; O2SAT 95–100
[2022-04-17 05:14] LABS: Alanine Aminotransferase 50 IU/L (<50); Albumin 3.6 g/dL (3.5-5.0); Albumin Globulin Ratio 1.3 (1.0-2.8); Alkaline Phosphatase 120 U/L (38-126); Aspartate Aminotransferase 38 IU/L (17-59); BUN Creatinine Ratio 22.2 (6-22); Bilirubin Total 0.6 mg/dL (0.2-1.3); Blood Urea Nitrogen 22 mg/dL (9-20); Calcium 8.6 mg/dL (8.4-10.2); Carbon Dioxide 25 mmol/L (22-32); Chloride 102 mmol/L (98-107); Estimated Glomerular Filt Rate > 60 mL/min (>60); Globulin 2.7 g/dL (1.7-4.1); Glucose 243 mg/dL (80-110); HEMOLYSIS < 15 (0-50); Potassium 3.8 mmol/L (3.4-5.1); Sodium 134 mmol/L (137-145); Total Protein 6.3 g/dL (6.3-8.2)
[2022-04-17 05:23] LABS: Add Manual Diff / Slide Review NO; Basophils Absolute Auto 0 /uL (0-100); Basophils Percent Auto 0.6 % (0-2); Eosinophils Absolute Auto 200 /uL (0-450); Eosinophils Percent Auto 2.6 % (2-4); Hematocrit 41.1 % (41-53); Hemoglobin 14.6 g/dL (13.5-17.5); Lymphocytes Absolute Auto 1600 /uL (1100-4500); Lymphocytes Percent Auto 24.2 % (25-40); Mean Corpuscular HGB Conc 35.5 % (30-36); Mean Corpuscular Volume 90.1 fL (80-100); Monocytes Absolute Auto 500 /uL (0-900); Monocytes Percent Auto 7.8 % (3-14); Neutrophils Absolute Auto 4400 /uL (1500-7000); Neutrophils Percent Auto 64.8 % (50-75); Platelet Count 246 X10^3/uL (150-400); Red Blood Cell Count 4.56 X10^6/uL (4.5-5.9); Red Cell Distribution Width 13.1 % (11.6-14.8); White Blood Cell Count 6.8 X10^3/uL (4.5-11.0)
[2022-04-17] MEDS: HYDROMORPHONE 1 MG INJ IV (05:37)
[2022-04-17 05:42] LABS: Hemoglobin A1C% w Est Avg Glu 7.3 % (4.0-6.0)
[2022-04-17] MEDS: PANTOPRAZOLE DR 20 MG TABLET PO (06:27)
[2022-04-17] MEDS: INSULIN LISPRO 100 UNIT/ML 3ML VIAL SUBCUT ×2 (08:10→12:12)
[2022-04-17] MEDS: ATORVASTATIN 20 MG TABLET 80 MG PO (08:23)
[2022-04-17] MEDS: METOPROLOL ER 50 MG TABLET 100 MG PO (08:23)
[2022-04-17] MEDS: AMLODIPINE 5 MG TABLET 10 MG PO (08:23)
[2022-04-17] MEDS: ASPIRIN 325 MG TABLET PO (08:24)
[2022-04-17] MEDS: ISOSORBIDE MONONITRATE ER 30 MG TABLET PO (08:24)
[2022-04-17] MEDS: LIDOCAINE PATCH 1 EACH ADH..PATCH TOP (08:24)
[2022-04-17] MEDS: polyethylene glycoL 3350 17 GM POWD.PACK PO (08:24)
[2022-04-17] MEDS: GABAPENTIN 300 MG CAPSULE PO (08:24)
[2022-04-17] MEDS: LOSARTAN 50 MG TABLET PO (08:24)
[2022-04-17] MEDS: CLOPIDOGREL 75 MG TABLET PO (08:24)
[2022-04-17] MEDS: SODIUM CHLORIDE 0.9% FLUSH 10 ML IV (08:36)
[2022-04-17] MEDS: METOCLOPRAMIDE HCL 10 MG TABLET PO ×2 (08:55→11:58)
[2022-04-17] MEDS: CYCLOBENZAPRINE 10 MG TABLET PO (09:16)
[2022-04-17] MEDS: OXYCODONE IR 10 MG TABLET 15 MG PO ×2 (09:16→11:58)
--- NOTE | 2022-04-17 12:42 | P.DS_ITS ---
History of Present Illness History of Present Illness Date Patient Seen: 04/17/22 Chief complaint: ABD PAINS, CONSTIPATED Narrative: This is a 62-year-old male with a past medical history of CAD, hypertension who presented to the emergency room with epigastric and right upper quadrant pain over the past 3 weeks. Patient states that his symptoms started after a fall 3 weeks ago where he fell and landed in a hole on his back. He describes the as intermittent, sharp but also band like over his epigastrium. There is no radiation into his neck or jaw and is not associated with any substernal chest pain or chest pressure. He denies any palpitations, nausea, vomiting, diaphoresis, or lightheadedness. He reports previous visits to emergency rooms with elevated BP for the same symptoms. Prior evaluations per review include negative radiographs of his right ribs and abdomen on March 25, and unremarkable x-rays of his chest, ribs, thoracic spine, and an unremarkable CT abdomen pelvis on April 09. He states symptoms have continued. He states his BP is always high at home around 180 to 200. He states he takes his home medications regularly. In the emergency room here the patient had a an unremarkable CT of his abdomen pelvis again, and a chest x-ray that showed no acute pathology. In the emergency room he was hypertensive, but the remainder of his vital signs were unre markable. He was given a single dose of hydralazine which did not help his BP improve, he was also given some pain medications. He was quickly started on a nicardipine infusion and admitted to the ICU. After my evaluation, I re-ordered an oral BP medication and stopped cardene infusion given no obvious signs of hypertensive emergency. EKG does show some ST depressions but these are unchanged on repeat and no prior tracings were available for review. Troponin did increase slightly but still in intermediate range at 0.04 and patient without symptoms other than epigastric / RUQ abdominal pain which was reproducible on exam. Discharge Providers Provider Date of admission: 04/16/22 05:44 Discharge Date: 04/17/22 Consults: 04/16/22 04:52 Consult to Tele-hotel maintenance engineer Routine Comment: boarding in ED-lisy bullard Consulting Provider: [employer] Reason for consultation: Chief Pharmacist services Has provider been notified: No 04/16/22 04:58 Consult to Dietitian, Adult Routine Comment: Reason For Exam: BMI 34.8 04/16/22 04:59 Consult to Discharge Planning Routine Comment: Discharge provider: Amor Mcnamara DO Summary Hospital Course Discharge Diagnosis: 1. Intractable abdominal pain 2. Elevated troponin 3. Essential hypertension ? 4. Type 2 diabetes 5. CAD Hospital Course: This is a 62 year old male with PMH of HTN, DM2, CAD who presented with 3 weeks of continued abdominal pain. He was also quite hypertensive. The emergency room provider started the patient on a nicardipine infusion, this was discontinued on arrival to the floor given low likelihood of hypertensive emergency. His BP quickly improved with pain control and resuming his home antihypertensives. No obvious source of his pain could be found after evaluation with CT scan, RUQ US. Possibilities include biliary dyskinesia, gastroparesis, but his signs and symptoms most likely fit with a fractured rib after a recent trauma or musculoskeletal pain. Review of OSH imaging revealed no acute fractures on XR R rib series (done twice) so no further imaging was obtained here. He improved with oral pain medications and was discharged home. Metoclopramide did not seemingly help with his symptoms either. He was ambulatory and tolerating a diet at the time of discharge. Further evaluation with his PCP is recommended as an outpatient. Time Spent with Patient Time spent: Greater than 30 minutes Exam Vital Signs (past 8 hours): - 04/17/22 07:00 04/17/22 08:23 04/17/22 08:24 Temperature Pulse Rate 80 80 Respiratory Rate Blood Pressure 150/90 H 150/90 H Pulse Oximetry Oxygen Delivery Method Room Air Oxygen Flow Rate 04/17/22 08:00 04/17/22 09:27 04/17/22 12:00 Temperature 98.1 F Pulse Rate 61 63 56 L Respiratory Rate 15 20 Blood Pressure 151/98 H 114/63 98/55 L Pulse Oximetry 98 100 Oxygen Delivery Method Oxygen Flow Rate 0 Oxygen Delivery Method Room Air Oxygen Flow Rate 0 Narrative Exam Narrative: General:? Patient is well developed and well nourished, in no distress at this time. HEENT:? Normocephalic, atraumatic, extraocular muscles intact, oral pharynx is clear and mucous membranes are moist. Neck: supple and symmetric, trachea is midline, no cervical adenopathy. Negative for JVD Chest:? Normal AP diameter and contour without kyphoscoliosis, no tachypnea, equal chest rise bilaterally. Lungs:? CTA b/l no wheezing rhonchi or rales. Cardio:?RRR no m/r/g. Abdomen:soft, mild distension, RUQ and point lateral tenderness over ribs with reproducible pain. Musculoskeletal:? Muscle strength and tone are equal within normal limits, no deformity. Extremities: No edema or joint effusions. No cyanosis or clubbing. Skin:? Pale,? Warm to touch,dry and intact without rashes, ulcerations or petechiae.? Neuro:? Alert and orientated x3,? sensation to touch intact in all extremities, no gross deficits noted of cranial nerves. Psych:? Patient has a well-kept appearance, appropriate affect, mental status attitude thought context and judgment are appropriate for age. Objective Labs Result Diagrams: 04/17/22 04:05 04/17/22 04:05 Labs: Laboratory Results - last 24 hr 04/16/22 04/17/22 04/17/22 12:35 04:05 04:05 WBC 6.8 RBC 4.56 Hgb 14.6 Hct 41.1 MCV 90.1 MCH 32.0 MCHC 35.5 RDW 13.1 Plt Count 246 Neut % (Auto) 64.8 Lymph % (Auto) 24.2 L [place] % (Auto) 7.8 Eos % (Auto) 2.6 Baso % (Auto) 0.6 Neut # (Auto) 4400 Lymph # (Auto) 1600 [place] # (Auto) 500 Eos # (Auto) 200 Baso # (Auto) 0 Sodium Potassium Chloride Carbon Dioxide BUN Creatinine Estimated GFR BUN/Creatinine Ratio Glucose Hemoglobin A1c 7.3 H Calcium Total Bilirubin AST ALT Alkaline Phosphatase Troponin I 0.040 H Total Protein Albumin Globulin Albumin/Globulin Ratio 04/17/22 04:05 WBC RBC Hgb Hct MCV MCH MCHC RDW Plt Count Neut % (Auto) Lymph % (Auto) [place] % (Auto) Eos % (Auto) Baso % (Auto) Neut # (Auto) Lymph # (Auto) [place] # (Auto) Eos # (Auto) Baso # (Auto) Sodium 134 L Potassium 3.8 Chloride 102 Carbon Dioxide 25 BUN 22 H Creatinine 0.99 Estimated GFR > 60 BUN/Creatinine Ratio 22.2 H Glucose 243 H Hemoglobin A1c Calcium 8.6 Total Bilirubin 0.6 AST 38 ALT 50 H Alkaline Phosphatase 120 Troponin I Total Protein 6.3 Albumin 3.6 Globulin 2.7 Albumin/Globulin Ratio 1.3 PFSH Medical History (Updated 04/16/22 @ 10:38 by Amor Mcnamara DO) CAD (coronary artery disease) HTN (hypertension) Surgical History (Updated 04/16/22 @ 10:38 by Amor Mcnamara DO) H/O heart artery stent History of appendectomy Family History (Updated 04/16/22 @ 10:39 by Amor Mcnamara DO) Brother Diabetes mellitus Father Diabetes mellitus Mother Diabetes mellitus Social History household members: none Smoking Status: Never smoker alcohol intake: current Discharge Plan Discharge Plan Patient Disposition: Home Provider Discharge Comment: You were admitted to the hospital with Right sided abdominal or chest wall pain. The exact etiology could not be found. It acts much like a rib fracture though you've had two negative xrays. Pain medications were prescribed, please follow up with your primary care provider for further evaluation. Discharge orders & Medications Prescriptions: New acetaminophen 325 mg Tablet 650 mg PO Q6HR PRN (Reason: Fever/Mild Pain (1-3)) 30 Days Qty: 90 0RF oxycodone 15 mg tablet 15 mg PO Q4H PRN (Reason: pain) 7 Days Qty: 30 0RF lidocaine 4 % adhesive patch,medicated 1 patch topical DAILY PRN (Reason: pain) 15 Days Qty: 15 0RF Continued losartan 50 mg Tablet 50 mg PO DAILY metformin 500 mg Tablet 1,000 mg PO BID atorvastatin 80 mg Tablet 80 mg PO DAILY aspirin 325 mg Tablet 325 mg PO DAILY glipizide 10 mg Tablet 10 mg PO BID isosorbide mononitrate 30 mg Tablet Extended Release 24 Hr 30 mg PO DAILY metoprolol succinate 100 mg Tablet Extended Release 24 Hr 100 mg PO BID pantoprazole 40 mg Tablet,Delayed Release (Dr/Ec) 40 mg PO DAILY nitroglycerin [Nitrostat] 0.4 mg Tablet, Sublingual 0.4 mg sublingual Q5M PRN (Reason: Chest Pain) gabapentin 300 mg Tablet 300 mg PO TID amlodipine 10 mg tablet 10 mg PO DAILY chlorthalidone 25 MG tablet 12.5 mg PO DAILY clopidogrel 75 mg tablet 75 mg PO DAILY Diet/Activity/Treatments Diet: Diet as Tolerated Activity: As tolerated Visit Report/Discharge Packet Instructions: DI for Prescription Opioid Use Discharge Data Attending Provider: Wilma Patricio
--- NOTE | 2022-04-17 13:15 | PC.NURSE ---
Discharge information given to patient, dressed and ambulating in room without difficulty. IV's removed.
--- NOTE | 2022-04-17 14:55 | CM.DPNOTE ---
DC Note DC home today, close outpatient f/u recommended. No needs identified from this CM team JW
== END 2022-04-17 14:07 | disposition home or self-care (01) ==
LOC: ED 00:59 → ICU 05:52 → AC 15:20
PROVIDERS: Internal Medicine; Admitting Provider Nurse Practitioner Family; Emergency Provider Emergency Medicine; Referring Provider Emergency Medicine; Visit Provider Nurse Practitioner Family
DX: R10.9 Unspecified abdominal pain (principal); K59.00 Constipation, unspecified; R77.8 Other specified abnormalities of plasma proteins; I10 Essential (primary) hypertension; I25.10 Atherosclerotic heart disease of native coronary artery without angina pectoris; E11.9 Type 2 diabetes mellitus without complications; Z79.84 Long term (current) use of oral hypoglycemic drugs; Z20.822 Contact with and (suspected) exposure to COVID-19
CPT/HCPCS: 36415; 71045; 74176; 76705; 80053; 81003; 82550; 82962; 83036; 83690; 83735; 83880; 84484; 85025; 85610; 87635; 93005; 93010; 96365; 96366; 96372; 96375; 96376; 99284; 99285; 99291; C9803; G0378; J0360; J1170; J1815; J2270

== ENCOUNTER 2022-07-07 14:57 | Observation (INO) | payer MEDICARE, SELFPAY ==
[2022-04-16 05:53] VITALS: BMI 34.7
[2022-07-07] VITALS (92 sets, daily range): BP systolic 153–277; BP diastolic 87–149; PULSE 56–98; RESP 11–32; TEMP 36.6–36.7; O2SAT 93–99; BMI 34.3
--- NOTE | 2022-07-07 15:06 | DI.RAD.S_ITS ---
PROCEDURE: XR CHEST 1V INDICATIONS: chest pain TECHNIQUE: One view of the chest was acquired. COMPARISON: [facility], CR, XR CHEST 1V, 04/16/2022, 1:09. FINDINGS: Surgical changes and devices: Low anterior cervical fusion. Lungs and pleura: Lungs are clear. No pleural effusions or pneumothorax. Mediastinum: Mediastinal contours appear normal. Heart size is normal. Bones and chest wall: No suspicious bony lesions. Overlying soft tissues appear unremarkable. IMPRESSION: No acute process. Dictated by: Roman Elaine M.D. on 07/07/2022 at 15:47 Approved by: Roman Elaine M.D. on 07/07/2022 at 15:48
--- NOTE | 2022-07-07 15:09 | DI.CT.S_ITS ---
PROCEDURE: CT HEAD/BRAIN WO CON INDICATIONS: HTN and headache TECHNIQUE: Noncontrast 4.5 mm thick angled axial sections acquired from the foramen magnum to the vertex, with coronal and sagittal reformats. For radiation dose reduction, the following was used: automated exposure control, adjustment of mA and/or kV according to patient size. COMPARISON: [facility], MR, MR BRAIN WITHOUT CONTRAST, 07/02/2021, 7:23. FINDINGS: Image quality: Excellent. CSF spaces: Basal cisterns are patent. No extra-axial fluid collections. The ventricles are symmetric in size and shape. Brain: No intracranial bleeds or masses. There is cerebral volume loss for age, with resultant ventricular and sulcal prominence. There are periventricular and deep white matter chronic small vessel ischemic changes. There is intracranial internal carotid artery atherosclerosis. Skull and face: Calvarium and visualized facial bones appear intact, without suspicious lesions. Sinuses: Visualized sinuses and mastoids are clear. IMPRESSION: 1. No acute intracranial abnormality. Dictated by: Roman Elaine M.D. on 07/07/2022 at 16:09 Transcribed by: LESLY on 07/07/2022 at 16:10 Approved by: Roman Elaine M.D. on 07/07/2022 at 16:16
--- NOTE | 2022-07-07 15:09 | ED.GENADULT ---
HPI - General Adult General Chief complaint: Hypertension Stated complaint: BP extremely high Time Seen by Provider: 07/07/22 15:08 Source: patient Mode of arrival: Ambulatory Limitations: no limitations History of Present Illness HPI narrative: Patient is a 62-year-old male who is here for evaluation of a headache and chest discomfort and also high blood pressure. He has a history of high blood pressure. Is on medications. States he is taking his blood pressure at home. He states that he frequently has a systolic blood pressure in the 180s to 200s. Earlier today he had a onset of a headache. Describes it in the front of his head. Some blurry vision but he thinks that is because of the pain. He is also having some chest discomfort. This started about the same time as his headache. He is also having abdominal pain but this has been going on for some time. He has been admitted in the past because of high blood pressure. States last time he was admitted there were no changes made to his medications. No lower extremity swelling. No shortness of breath. Has not tried anything for his symptoms. Related Data Home Medications Medication Instructions Recorded Confirmed amlodipine 10 mg PO DAILY 04/16/22 04/16/22 aspirin 325 mg tablet 325 mg PO DAILY 04/16/22 04/16/22 atorvastatin 80 mg tablet 80 mg PO DAILY 04/16/22 04/16/22 chlorthalidone 12.5 mg PO DAILY 04/16/22 04/16/22 clopidogrel 75 mg PO DAILY 04/16/22 04/16/22 gabapentin 300 mg tablet 300 mg PO TID 04/16/22 04/16/22 glipizide 10 mg tablet 10 mg PO BID 04/16/22 04/16/22 isosorbide mononitrate 30 mg 30 mg PO DAILY 04/16/22 04/16/22 tablet,extended release 24 hr losartan 50 mg tablet 50 mg PO DAILY 04/16/22 04/16/22 metformin 500 mg tablet 1,000 mg PO BID 04/16/22 04/16/22 metoprolol succinate 100 mg 100 mg PO BID 04/16/22 04/16/22 tablet,extended release 24 hr nitroglycerin 0.4 mg sublingual 0.4 mg sublingual Q5M PRN Chest 04/16/22 04/16/22 tablet (Nitrostat) Pain pantoprazole 40 mg tablet,delayed 40 mg PO DAILY 04/16/22 04/16/22 release Allergies Allergy/AdvReac Type Severity Reaction Status Date / Time No Known Drug Allergies Allergy Verified 07/07/22 15:15 Review of Systems Review of Systems ROS Unobtainable: All systems reviewed & are unremarkable except as noted in HPI and below Patient History Medical History CAD (coronary artery disease) HTN (hypertension) Surgical History (Updated 04/16/22 @ 10:38 by Amor Mcnamara DO) H/O heart artery stent History of appendectomy Family History (Updated 04/16/22 @ 10:39 by Amor Mcnamara DO) Brother Diabetes mellitus Father Diabetes mellitus Mother Diabetes mellitus Social History household members: none Smoking Status: Never smoker alcohol intake: current Smoking Status: Never smoker alcohol intake frequency: 3 or more drinks per day Alcohol type: beer Substance Use Type: does not use Exam Initial Vital Signs Initial Vital Signs: Vital Signs Temperature 98.0 F 07/07/22 14:58 Pulse Rate 96 H 07/07/22 14:58 Respiratory Rate 18 07/07/22 14:58 Blood Pressure 265/140 H 07/07/22 14:58 Pulse Oximetry 96 07/07/22 14:58 Oxygen Delivery Method 07/07/22 14:58 Const General: cooperative, comfortable and No ill appearing HENDC Head: normal to inspection and normocephalic Face and sinus: normal facial exam Resp Effort & Inspection: normal respiratory effort Auscultation: clear to auscultation bilaterally Cardio Rate: regular rate Rhythm: regular rhythm GI Inspection: normal to inspection Palpation: soft, No firm, No guarding and tender (Mild generalized tenderness) Skin General: no rashes or lesions noted Neuro General: patient alert, patient awake, patient oriented x3 and moves all extremities Cognition: normal cognition Speech: speech normal Extrem General: No edema Psych Appearance: grossly normal and well kempt Course Orders Ordered: ED Orders 07/07/22 15:06 XR chest 1V Stat EKG-12 Lead Stat 07/07/22 15:08 Complete Blood Count AUTO DIFF Stat Comprehensive Metabolic Panel Stat Lipase Stat Magnesium Stat Troponin & CK Cardiac Panel Stat 07/07/22 15:09 CT head/brain wo con Stat 07/07/22 19:49 COVID19 -Nasal RAPID/Pre-Proc Stat 07/07/22 19:52 Urine Drug Screen, Rapid Stat Discontinued Medications Diphenhydramine HCl (Diphenhydramine 50 Mg/Ml Vial) 25 mg IV NOW ONE Stop: 07/07/22 16:09 Last Admin: 07/07/22 16:19 Dose: 25 mg Documented By: SAEED Hydralazine HCl (Hydralazine 20 Mg/Ml Vial) 10 mg IV Q6HR PRN PRN Reason: Hypertension Hydralazine HCl (Hydralazine 20 Mg/Ml Vial) 10 mg IV NOW ONE Stop: 07/07/22 19:14 Last Admin: 07/07/22 19:19 Dose: 10 mg Documented By: SAEED Hydromorphone HCl (Hydromorphone 1 Mg Inj) 1 mg IV NOW ONE Stop: 07/07/22 18:59 Last Admin: 07/07/22 19:14 Dose: 1 mg Documented By: SAEED Labetalol HCl (Labetalol 20 Mg/4 Ml Syringe) 10 mg IV NOW ONE Stop: 07/07/22 15:10 Last Admin: 07/07/22 15:14 Dose: 10 mg Documented By: SAEED Metoclopramide HCl (Metoclopramide 10 Mg/2 Ml Inj) 10 mg IV NOW ONE Stop: 07/07/22 16:09 Last Admin: 07/07/22 16:22 Dose: 10 mg Documented By: SAEED Morphine Sulfate (Morphine 4 Mg/Ml Inj) 4 mg IV NOW ONE Stop: 07/07/22 15:10 Last Admin: 07/07/22 15:19 Dose: 4 mg Documented By: SAEED Vital Signs Vital signs: Vital Signs - 8 hr 07/07/22 15:03 07/07/22 15:04 07/07/22 15:04 Temperature Pulse Rate 94 H 94 H Respiratory Rate 15 23 Blood Pressure 267/142 H Pulse Oximetry 96 96 Oxygen Delivery Method 07/07/22 15:05 07/07/22 15:06 07/07/22 15:06 Temperature Pulse Rate 98 H 98 H Respiratory Rate 23 21 Blood Pressure 277/143 H Pulse Oximetry 96 96 Oxygen Delivery Method 07/07/22 14:58 07/07/22 15:08 07/07/22 15:08 Temperature 98.0 F Pulse Rate 96 H 96 H Respiratory Rate 18 21 Blood Pressure 265/140 H 254/149 H Pulse Oximetry 96 96 Oxygen Delivery Method Room Air Room Air 07/07/22 15:10 07/07/22 15:15 07/07/22 15:19 Temperature Pulse Rate 91 H 85 78 Respiratory Rate 21 19 29 H Blood Pressure Pulse Oximetry 97 96 93 Oxygen Delivery Method Room Air Room Air Room Air 07/07/22 15:19 07/07/22 15:20 07/07/22 15:21 Temperature Pulse Rate 69 69 Respiratory Rate 23 22 Blood Pressure 212/108 H Pulse Oximetry 96 94 Oxygen Delivery Method Room Air Room Air 07/07/22 15:21 07/07/22 15:25 07/07/22 15:25 Temperature Pulse Rate 72 Respiratory Rate 20 Blood Pressure 216/116 H 202/101 H Pulse Oximetry 94 Oxygen Delivery Method Room Air 07/07/22 15:36 07/07/22 15:37 07/07/22 15:37 Temperature Pulse Rate 69 71 Respiratory Rate 19 20 Blood Pressure 212/135 H Pulse Oximetry 97 96 Oxygen Delivery Method Room Air Room Air 07/07/22 15:40 07/07/22 15:41 07/07/22 15:41 Temperature Pulse Rate 72 71 Respiratory Rate 16 24 Blood Pressure 212/114 H Pulse Oximetry 96 96 Oxygen Delivery Method Room Air Room Air 07/07/22 15:50 07/07/22 15:50 07/07/22 15:55 Temperature Pulse Rate 69 Respiratory Rate 22 Blood Pressure 210/120 H 200/107 H Pulse Oximetry 97 Oxygen Delivery Method 07/07/22 15:55 07/07/22 16:00 07/07/22 16:00 Temperature Pulse Rate 66 66 Respiratory Rate 21 18 Blood Pressure 196/106 H Pulse Oximetry 97 96 Oxygen Delivery Method Room Air 07/07/22 16:05 07/07/22 16:05 07/07/22 16:10 Temperature Pulse Rate 67 Respiratory Rate 18 Blood Pressure 193/104 H 196/109 H Pulse Oximetry 96 Oxygen Delivery Method 07/07/22 16:10 07/07/22 16:15 07/07/22 16:15 Temperature Pulse Rate 67 65 Respiratory Rate 20 17 Blood Pressure 177/98 H Pulse Oximetry 97 96 Oxygen Delivery Method 07/07/22 16:20 07/07/22 16:21 07/07/22 16:21 Temperature Pulse Rate 65 63 Respiratory Rate 20 17 Blood Pressure 199/100 H Pulse Oximetry 97 97 Oxygen Delivery Method 07/07/22 16:25 07/07/22 16:25 07/07/22 16:30 Temperature Pulse Rate 64 Respiratory Rate 19 Blood Pressure 195/102 H 196/106 H Pulse Oximetry 97 Oxygen Delivery Method 07/07/22 16:30 07/07/22 16:35 07/07/22 16:35 Temperature Pulse Rate 67 63 Respiratory Rate 19 16 Blood Pressure 193/111 H Pulse Oximetry 97 98 Oxygen Delivery Method 07/07/22 16:40 07/07/22 16:40 07/07/22 16:45 Temperature Pulse Rate 62 Respiratory Rate 16 Blood Pressure 168/95 H 176/99 H Pulse Oximetry 96 Oxygen Delivery Method 07/07/22 16:45 07/07/22 16:50 07/07/22 16:50 Temperature Pulse Rate 61 60 Respiratory Rate 14 14 Blood Pressure 165/92 H Pulse Oximetry 97 96 Oxygen Delivery Method 07/07/22 16:55 07/07/22 16:55 07/07/22 17:00 Temperature Pulse Rate 60 Respiratory Rate 15 Blood Pressure 160/87 H 161/90 H Pulse Oximetry 96 Oxygen Delivery Method 07/07/22 17:00 07/07/22 17:05 07/07/22 17:05 Temperature Pulse Rate 59 L 59 L Respiratory Rate 15 17 Blood Pressure 153/88 H Pulse Oximetry 96 96 Oxygen Delivery Method Room Air 07/07/22 17:10 07/07/22 17:10 07/07/22 17:15 Temperature Pulse Rate 59 L Respiratory Rate 14 Blood Pressure 155/90 H 161/92 H Pulse Oximetry 96 Oxygen Delivery Method 07/07/22 17:15 07/07/22 17:20 07/07/22 17:20 Temperature Pulse Rate 58 L 58 L Respiratory Rate 14 15 Blood Pressure 165/91 H Pulse Oximetry 96 96 Oxygen Delivery Method 07/07/22 17:25 07/07/22 17:25 07/07/22 17:30 Temperature Pulse Rate 58 L Respiratory Rate 13 Blood Pressure 162/90 H 166/93 H Pulse Oximetry 96 Oxygen Delivery Method 07/07/22 17:30 07/07/22 17:35 07/07/22 17:36 Temperature Pulse Rate 57 L 58 L 58 L Respiratory Rate 13 16 15 Blood Pressure Pulse Oximetry 96 98 99 Oxygen Delivery Method 07/07/22 17:36 07/07/22 17:40 07/07/22 17:40 Temperature Pulse Rate 57 L Respiratory Rate Blood Pressure 185/105 H 187/106 H Pulse Oximetry 98 Oxygen Delivery Method 07/07/22 17:45 07/07/22 17:45 07/07/22 17:50 Temperature Pulse Rate 58 L Respiratory Rate 11 L Blood Pressure 189/107 H 190/100 H Pulse Oximetry 98 Oxygen Delivery Method 07/07/22 17:50 07/07/22 17:55 07/07/22 17:55 Temperature Pulse Rate 58 L 56 L Respiratory Rate 15 13 Blood Pressure 178/100 H Pulse Oximetry 98 97 Oxygen Delivery Method 07/07/22 18:00 07/07/22 18:00 07/07/22 18:05 Temperature Pulse Rate 56 L 62 Respiratory Rate 13 15 Blood Pressure 174/100 H Pulse Oximetry 97 98 Oxygen Delivery Method Room Air 07/07/22 18:06 07/07/22 18:06 07/07/22 18:10 Temperature Pulse Rate 60 Respiratory Rate Blood Pressure 204/100 H 201/104 H Pulse Oximetry 98 Oxygen Delivery Method 07/07/22 18:10 07/07/22 18:15 07/07/22 18:15 Temperature Pulse Rate 61 58 L Respiratory Rate 13 Blood Pressure 196/105 H Pulse Oximetry 98 99 Oxygen Delivery Method 07/07/22 18:20 07/07/22 18:20 07/07/22 18:25 Temperature Pulse Rate 60 Respiratory Rate 19 Blood Pressure 194/103 H 182/97 H Pulse Oximetry 98 Oxygen Delivery Method 07/07/22 18:25 07/07/22 18:30 07/07/22 18:30 Temperature Pulse Rate 60 61 Respiratory Rate 16 15 Blood Pressure 188/100 H Pulse Oximetry 98 98 Oxygen Delivery Method Room Air 07/07/22 18:35 07/07/22 18:35 07/07/22 18:40 Temperature Pulse Rate 62 Respiratory Rate 18 Blood Pressure 195/110 H 197/110 H Pulse Oximetry 99 Oxygen Delivery Method 07/07/22 18:40 07/07/22 18:45 07/07/22 18:46 Temperature Pulse Rate 60 68 70 Respiratory Rate 19 17 21 Blood Pressure Pulse Oximetry 98 99 99 Oxygen Delivery Method 07/07/22 18:46 07/07/22 18:50 07/07/22 18:51 Temperature Pulse Rate 67 65 Respiratory Rate 22 21 Blood Pressure 225/118 H Pulse Oximetry 99 99 Oxygen Delivery Method 07/07/22 18:51 07/07/22 18:55 07/07/22 18:56 Temperature Pulse Rate 62 Respiratory Rate 20 Blood Pressure 217/116 H 215/109 H Pulse Oximetry 98 Oxygen Delivery Method 07/07/22 18:56 07/07/22 19:19 07/07/22 19:00 Temperature Pulse Rate 61 60 Respiratory Rate 20 Blood Pressure 181/100 H 206/100 H Pulse Oximetry 98 Oxygen Delivery Method Room Air 07/07/22 19:00 07/07/22 19:05 07/07/22 19:05 Temperature Pulse Rate 59 L 59 L Respiratory Rate 18 17 Blood Pressure 198/99 H Pulse Oximetry 98 98 Oxygen Delivery Method Room Air Room Air 07/07/22 19:10 07/07/22 19:10 07/07/22 19:15 Temperature Pulse Rate 58 L Respiratory Rate 16 Blood Pressure 195/104 H 195/110 H Pulse Oximetry 98 Oxygen Delivery Method 07/07/22 19:15 07/07/22 19:20 07/07/22 19:20 Temperature Pulse Rate 59 L 60 Respiratory Rate 16 14 Blood Pressure 181/100 H Pulse Oximetry 99 98 Oxygen Delivery Method 07/07/22 19:23 07/07/22 19:23 07/07/22 19:25 Temperature Pulse Rate 62 Respiratory Rate 14 Blood Pressure 184/96 H 182/96 H Pulse Oximetry 97 Oxygen Delivery Method 07/07/22 19:25 07/07/22 19:28 07/07/22 19:28 Temperature Pulse Rate 62 65 Respiratory Rate 17 18 Blood Pressure 184/103 H Pulse Oximetry 97 97 Oxygen Delivery Method 07/07/22 19:30 07/07/22 19:31 07/07/22 19:31 Temperature Pulse Rate 76 81 Respiratory Rate 26 H Blood Pressure 196/138 H Pulse Oximetry 97 97 Oxygen Delivery Method 07/07/22 19:35 07/07/22 19:36 07/07/22 19:36 Temperature Pulse Rate 64 66 Respiratory Rate 22 19 Blood Pressure 189/103 H Pulse Oximetry 97 97 Oxygen Delivery Method 07/07/22 19:40 07/07/22 19:41 07/07/22 19:41 Temperature Pulse Rate 76 78 Respiratory Rate 23 22 Blood Pressure 222/118 H Pulse Oximetry 98 97 Oxygen Delivery Method 07/07/22 19:45 07/07/22 19:46 07/07/22 19:46 Temperature Pulse Rate 74 72 Respiratory Rate 18 18 Blood Pressure 199/106 H Pulse Oximetry 98 98 Oxygen Delivery Method Room Air Medical Decision Making Lab Data Lab results reviewed: Yes I reviewed the patient's lab results. Result diagrams: 07/07/22 15:08 07/07/22 15:08 Labs: Lab Results 07/07/22 07/07/22 Range/Units 15:08 15:08 WBC 7.6 (4.5-11.0) X10^3/uL RBC 5.51 (4.5-5.9) X10^6/uL Hgb 17.1 (13.5-17.5) g/dL Hct 49.4 (41-53) % MCV 89.6 (80-100) fL MCH 31.1 (26-34) PG MCHC 34.7 (30-36) % RDW 14.3 (11.6-14.8) % Plt Count 224 (150-400) X10^3/uL Neut % (Auto) 67.4 (50-75) % Lymph % (Auto) 24.0 L (25-40) % [place] % (Auto) 7.4 (3-14) % Eos % (Auto) 0.6 L (2-4) % Baso % (Auto) 0.6 (0-2) % Neut # (Auto) 5200 (4705-6446) /uL Lymph # (Auto) 1800 (5856-7144) /uL [place] # (Auto) 600 (0-900) /uL Eos # (Auto) 0 (0-450) /uL Baso # (Auto) 0 (0-100) /uL Sodium 137 (137-145) mmol/L Potassium 3.3 L (3.4-5.1) mmol/L Chloride 104 (98-107) mmol/L Carbon Dioxide 23 (22-32) mmol/L BUN 17 (9-20) mg/dL Creatinine 0.93 (0.66-1.25) mg/dL Estimated GFR > 60 (>60) mL/min BUN/Creatinine Ratio 18.3 (6-22) Glucose 236 H (80-110) mg/dL Calcium 8.5 (8.4-10.2) mg/dL Magnesium 2.3 (1.6-2.3) mg/dL Total Bilirubin 0.9 (0.2-1.3) mg/dL AST 35 (17-59) IU/L ALT 33 (<50) IU/L Alkaline Phosphatase 158 H (38-126) U/L Total Creatine Kinase 106 (55-170) U/L CK-MB (CK-2) 1.56 (<2.37) ng/mL CK-MB (CK-2) Rel Index 1.5 (1.5-5.0) % Troponin I 0.040 H (0.01-0.034) ng/mL Total Protein 7.9 (6.3-8.2) g/dL Albumin 4.4 (3.5-5.0) g/dL Globulin 3.5 (1.7-4.1) g/dL Albumin/Globulin Ratio 1.3 (1.0-2.8) Lipase 73 (23-300) U/L Imaging Data Chest x-ray: Radiologist's Impression: [address] [address] XRay Report Signed Patient: Morgan Lai MR#: [id number] : 1960 Acct:[id number] Age/Sex: 62 / M Date of Service: 07/07/22 Loc: Accession Number: [id number] ?? Procedure: XR chest 1V Ordering Provider: Helio Castro D.O. PROCEDURE:? XR CHEST 1V ? INDICATIONS:? chest pain ? TECHNIQUE:? One view of the chest was acquired.? ? COMPARISON:? [facility], , XR CHEST 1V, 04/16/2022, 1:09. ? FINDINGS:? ? Surgical changes and devices:? Low anterior cervical fusion. ? Lungs and pleura:? Lungs are clear.? No pleural effusions or pneumothorax.? ? Mediastinum:? Mediastinal contours appear normal.? Heart size is normal.? ? Bones and chest wall:? No suspicious bony lesions.? Overlying soft tissues appear unremarkable.? ? IMPRESSION:? No acute process. ? ? Dictated by: Roman Elaine M.D. on 07/07/2022 at 15:47 ? ? Approved by: Roman Elaine M.D. on 07/07/2022 at 15:48?? CT scan - head: Radiologist's Impression: [address] [address] [address] Scan Report Signed Patient: Morgan Lai MR#: [id number] : 1960 Acct:[id number] Age/Sex: 62 / M Date of Service: 07/07/22 Loc: ED Accession Number: [id number] ?? Procedure: CT head/brain wo con Ordering Provider: Helio Castro D.O. PROCEDURE:? CT HEAD/BRAIN WO CON ? INDICATIONS:? HTN and headache ? TECHNIQUE:? Noncontrast 4.5 mm thick angled axial sections acquired from the foramen magnum to the vertex, with coronal and sagittal reformats.? For radiation dose reduction, the following was used:? automated exposure control, adjustment of mA and/or kV according to patient size.? ? COMPARISON:? [facility], MR, MR BRAIN WITHOUT CONTRAST, 07/02/2021, 7:23. ? FINDINGS:? Image quality:? Excellent.? ? CSF spaces:? Basal cisterns are patent.? No extra-axial fluid collections.? The ventricles are symmetric in size and shape.? ? Brain:? No intracranial bleeds or masses.? There is cerebral volume loss for age, with resultant ventricular and sulcal prominence.? There are periventricular and deep white matter chronic small vessel ischemic changes.? There is intracranial internal carotid artery atherosclerosis.? ? Skull and face:? Calvarium and visualized facial bones appear intact, without suspicious lesions.? ? Sinuses:? Visualized sinuses and mastoids are clear.? ? IMPRESSION:? 1. No acute intracranial abnormality.? ? ? Dictated by: Roman Elaine M.D. on 07/07/2022 at 16:09 ? Transcribed by: LESLY on 07/07/2022 at 16:10? ? Approved by: Roman Elaine M.D. on 07/07/2022 at 16:16 ECG Data Attestation: I personally reviewed and interpreted this ECG as follows: Interpretation: Sinus rhythm Ventricular rate 89 LVH Normal QRS QTC 493 milliseconds Unchanged from earlier EKGs Repeat EKG Sinus rhythm Ventricular rate of 72 LVH Unchanged from previous EKGs MDM Narrative Medical decision making narrative: Patient arrived extremely hypertensive with systolic blood pressures in the 270s. His head CT is unremarkable. Chest x-ray is unremarkable. Not in heart failure. Kidney functions unremarkable. EKG is unchanged. Troponin unchanged. Was given labetalol which did improve his blood pressure somewhat however it again increased. Is also given hydralazine. Goal for systolic blood pressure be in the 190s. Given his presenting symptoms patient does require admission to the hospital for further management of his blood pressure. Discussed the case with [employer] [facility] provider who will admit. Discussed need for admission with the patient and he expressed understanding and agreement as well. Critical Care Time Critical Care Time Critical Care Time: Yes Total Critical Care Time: 45 Attestation: The high probability of a clinically significant, sudden or life threatening deterioration of the []cardiovascular system(s) required my full and direct attention, intervention and personal management. The aggregate critical care time was [45] minutes. This time is in addition to time spent performing reported procedures but includes the following: x Data Review and interpretation [x] Patient assessment and monitoring of vital signs [x] Documentation [x] Medication orders and management Discharge Plan Departure Patient Disposition: Admitted As Inpatient Clinical Impression: Hypertensive urgency, Chest pain, Headache Admit Date/Time: 07/07/22 19:55
[2022-07-07] MEDS: LABETALOL 20 MG/4 ML SYRINGE 10 MG IV (15:14)
[2022-07-07] MEDS: MORPHINE 4 MG/ML INJ IV (15:19)
[2022-07-07 15:21] LABS: Add Manual Diff / Slide Review NO; Basophils Absolute Auto 0 /uL (0-100); Basophils Percent Auto 0.6 % (0-2); Eosinophils Absolute Auto 0 /uL (0-450); Eosinophils Percent Auto 0.6 % (2-4); Hematocrit 49.4 % (41-53); Hemoglobin 17.1 g/dL (13.5-17.5); Lymphocytes Absolute Auto 1800 /uL (1100-4500); Mean Corpuscular HGB Conc 34.7 % (30-36); Mean Corpuscular Hemoglobin 31.1 PG (26-34); Mean Corpuscular Volume 89.6 fL (80-100); Monocytes Absolute Auto 600 /uL (0-900); Monocytes Percent Auto 7.4 % (3-14); Neutrophils Absolute Auto 5200 /uL (1500-7000); Neutrophils Percent Auto 67.4 % (50-75); Platelet Count 224 X10^3/uL (150-400); Red Blood Cell Count 5.51 X10^6/uL (4.5-5.9); Red Cell Distribution Width 14.3 % (11.6-14.8); White Blood Cell Count 7.6 X10^3/uL (4.5-11.0)
[2022-07-07 15:27] LABS: Alanine Aminotransferase 33 IU/L (<50); Albumin 4.4 g/dL (3.5-5.0); Albumin Globulin Ratio 1.3 (1.0-2.8); Alkaline Phosphatase 158 U/L (38-126); Aspartate Aminotransferase 35 IU/L (17-59); BUN Creatinine Ratio 18.3 (6-22); Bilirubin Total 0.9 mg/dL (0.2-1.3); Blood Urea Nitrogen 17 mg/dL (9-20); Calcium 8.5 mg/dL (8.4-10.2); Carbon Dioxide 23 mmol/L (22-32); Chloride 104 mmol/L (98-107); Creatine Kinase 106 U/L (55-170); Estimated Glomerular Filt Rate > 60 mL/min (>60); Globulin 3.5 g/dL (1.7-4.1); Glucose 236 mg/dL (80-110); HEMOLYSIS 20 (0-50); Lipase 73 U/L (23-300); Magnesium 2.3 mg/dL (1.6-2.3); Potassium 3.3 mmol/L (3.4-5.1); Sodium 137 mmol/L (137-145); Total Protein 7.9 g/dL (6.3-8.2)
[2022-07-07 15:41] LABS: CKMB % Relative Index 1.5 % (1.5-5.0); Creatine Kinase MB 1.56 ng/mL (<2.37)
[2022-07-07] MEDS: diphenhydrAMINE 50 MG/ML VIAL 25 MG IV (16:19)
[2022-07-07] MEDS: METOCLOPRAMIDE 10 MG/2 ML INJ IV (16:22)
[2022-07-07] MEDS: HYDROMORPHONE 1 MG INJ IV (19:14)
[2022-07-07] MEDS: HYDRALAZINE 20 MG/ML VIAL 10 MG IV (19:19)
[2022-07-07 20:12] LABS: COVID19 -Nasal RAPID Negative (Negative)
--- NOTE | 2022-07-07 20:16 | DI.ECHO.S_ITS ---
[facility] +---------+ : : [address] : : : : [id number] : : : : Phone: [phone]+ Echocardiogram Report + + :Name: JUAN C NEAL Study Date: 07/08/2022 Height: 68 in : :[facility] ReadingLocation: Weight: 226 lb : : Gender: Male BSA: 2.2 m2 : :: 1960 Age: 62 yrs BP: 116/62 mmHg: :Reason For Study: HYPERTENSIVE EMERGENCY : :Ordering Physician: Roddy BROWNLEEformed By: Sandra Fountain : :Referring: DEJUAN BROWNLEE : + + Interpretation Summary The left ventricle is normal in size. Left ventricular systolic function is mildly reduced. The ejection fraction is estimated to be 40-45%. There is probable hypokinesis along the basal to mid inferior and inferolateral segments. Left ventricular function has slightly worsened compared to the previous exam. There is mild global hypokinesis of the left ventricle. Diastolic parameters suggest a pseudonormalization pattern, consistent with probable elevated filling pressures. The right ventricle is mildly dilated. The right ventricular systolic function is normal. The left atrium is mildly dilated. Right atrial size is normal. There is no significant valvular heart disease. The aortic root is normal size. Procedure: A two-dimensional transthoracic echocardiogram with color flow and Doppler was performed. The study quality was technically adequate. Comparison is made with the echocardiogram of 07/02/2021. The patient was in sinus bradycardia with heart rates between 55-62 bpm during the exam. Left Ventricle: The left ventricle is normal in size. There is mild concentric left ventricular hypertrophy. Left ventricular systolic function is mildly reduced. The ejection fraction is estimated to be 40-45%. Left ventricular function has slightly worsened compared to the previous exam. There is mild global hypokinesis of the left ventricle. Diastolic parameters suggest a pseudonormalization pattern, consistent with probable elevated filling pressures. Right Ventricle: The right ventricle is mildly dilated. The right ventricular systolic function is normal. Atria: The left atrium is mildly dilated. Right atrial size is normal. There is no Doppler evidence for an interatrial shunt. Mitral Valve: The mitral valve leaflets appear mildly thickened, but open well. There is mild mitral annular calcification. There is mild mitral regurgitation. Aortic Valve: The aortic valve is trileaflet. There is no aortic valve stenosis. There is trace aortic regurgitation. Tricuspid Valve: The tricuspid valve is normal in structure and function. There is mild tricuspid regurgitation. Pulmonic Valve: The pulmonic valve leaflets are thin and pliable; valve motion is normal. There is no pulmonic valvular regurgitation. There is no significant valvular heart disease. Great Vessels: The aortic root is normal size. The dimensions of the ascending aorta are normal. The IVC is of normal diameter and collapses greater than 50% with a sniff. This suggests a low right atrial pressure of 3 mm Hg. Pericardium/ Pleura There is no pericardial effusion. There is no pleural effusion. MMode/2D Measurements & Calculations LVIDd: 5.1 cm LVOT diam: 2.1 cm LVIDs: 4.0 cm Ao root diam: 3.4 cm FS: 22.3 % asc Aorta Diam: 3.4 cm EPSS: 1.8 cm Ao Arch Diam (Prox Trans): 2.6 cm IVSd: 1.3 cm LVPWd: 1.1 cm LV kaba. diameter/BSA (cm/m^2): 2.4 LV sys. diameter/BSA (cm/m^2): 1.8 LA A2 area: 26.1 cm2 RA long axis: 4.8 cm LA A4 area: 23.8 cm2 RA area: 17.2 cm2 LA length (vol): 5.9 cm RA vol: 51.8 ml LA vol: 89.0 ml RA : 24.1 ml/m2 LA vol index: 41.3 ml/m2 IVC diam: 1.6 cm RVD1 (basal): 4.3 cm RVD2 (mid): 3.1 cm TAPSE: 1.7 cm Doppler Measurements & Calculations Ao V2 max: 181.7 cm/sec LVOT Max Daniel: 82.7 cm/sec Ao V2 mean: 130.0 cm/sec LV V1 max P.7 mmHg Ao max P.2 mmHg LV V1 VTI: 18.2 cm Ao mean P.4 mmHg FABIOLA(I,D): 1.6 cm2 Ao V2 VTI: 39.1 cm FABIOLA(V,D): 1.6 cm2 sev ratio: 0.47 FABIOLA indexed to BSA (cm^2/m^2): 0.74 MV E max daniel: 103.0 cm/sec PA V2 max: 77.6 cm/sec MV A max daniel: 104.6 cm/sec PA V2 mean: 57.1 cm/sec MV E/A: 0.99 PA mean P.5 mmHg Med Peak E' Daniel: 4.8 cm/sec PA pr(Accel): 31.0 mmHg E/E' med: 21.5 Lat Peak E' Daniel: 7.3 cm/sec E/E' lat: 14.1 E/e' average: 17.8 MV dec time: 0.19 sec SV(LVOT): 62.0 ml Reading Physician:02:18 PM
[2022-07-07 20:30] LABS: Hemoglobin A1C% w Est Avg Glu 6.9 % (4.0-6.0)
[2022-07-07 21:00] LABS: Thyroid Stimulating Hormone 4.25 uIU/mL (0.47-4.68)
[2022-07-07] MEDS: POTASSIUM CHLORIDE 20 MEQ TAB 40 MEQ PO (21:28)
[2022-07-07] MEDS: METOPROLOL IR 25 MG TABLET PO (22:04)
--- NOTE | 2022-07-07 22:08 | P.HP_ITS ---
History of Present Illness History of Present Illness Date Patient Seen: 07/07/22 Time Patient Seen: 22:08 Chief complaint: BP extremely high Narrative: Morgan Lai is a 62 y.o. male ?past medical history of CAD, hypertension who presented to the emergency room with complaints of a headache, chest pressure and suspected high blood pressure. He states that he is had a longstanding problem with elevated blood pressures since he was 39 and that they are always adjusting his medications. He also has a complaint of a recent fall and has reproducible bilateral rib pain. Apparently he did report blurry vision to the ED provider but not me. He says that he is short of breath with the chest pain, denies nausea vomiting, abdominal pain, dysuria, diarrhea or constipation. He states his last visit to his PCP was 1 month ago. He sees Dr. Panda Del Valle in [place]. Both a chest x-ray and the CT of the head ordered in the emergency department reported negative findings. His presenting blood pressure in the ED was 265/140 it is currently 178/102. He is afebrile, his heart rate is 80 respiratory rate 26 oxygen saturation of 96% on room air he weighs 102.5 kg with a BMI of 34.7. CBC is unremarkable, potassium was 3.3 glucose 236 with an A1c of 6.9, troponin was initially 0.040 and it is come down to 0.036, UA and tox screen is only positive for opiates which is likely due to meds given in the emergency department, COVID-19 PCR is negative. FH: Reviewed with the patient and father of an PR at age 54, mother age 78 with heart problems, was a chain smoker, and of cancer primary unknown to the patient updated as below. Patient History Medical History CAD (coronary artery disease) HTN (hypertension) Surgical History H/O heart artery stent History of appendectomy Family & Social History Family History Brother Diabetes mellitus Father Diabetes mellitus Mother Diabetes mellitus Social History: household members none Safety & Behavioral: Feels Safe in Current Yes Environment Been Physically Hurt or No Threatened By a Person Tobacco & Substance use: Smoking Status Never smoker, but with significant second hand smoke exposure as a child alcohol intake current alcohol intake frequency 3 or more drinks per day Substance Use Type does not use Meds Home Medications and Allergies Home Medications Medication Instructions Recorded Confirmed Type amlodipine 10 mg PO DAILY 04/16/22 04/16/22 History aspirin 325 mg tablet 325 mg PO DAILY 04/16/22 04/16/22 History atorvastatin 80 mg tablet 80 mg PO DAILY 04/16/22 04/16/22 History chlorthalidone 12.5 mg PO DAILY 04/16/22 04/16/22 History clopidogrel 75 mg PO DAILY 04/16/22 04/16/22 History gabapentin 300 mg tablet 300 mg PO TID 04/16/22 04/16/22 History glipizide 10 mg tablet 10 mg PO BID 04/16/22 04/16/22 History isosorbide mononitrate 30 mg 30 mg PO DAILY 04/16/22 04/16/22 History tablet,extended release 24 hr losartan 50 mg tablet 50 mg PO DAILY 04/16/22 04/16/22 History metformin 500 mg tablet 1,000 mg PO BID 04/16/22 04/16/22 History metoprolol succinate 100 mg 100 mg PO BID 04/16/22 04/16/22 History tablet,extended release 24 hr nitroglycerin 0.4 mg sublingual 0.4 mg sublingual Q5M PRN Chest 04/16/22 04/16/22 History tablet (Nitrostat) Pain pantoprazole 40 mg tablet,delayed 40 mg PO DAILY 04/16/22 04/16/22 History release Allergies Allergy/AdvReac Type Severity Reaction Status Date / Time No Known Drug Allergies Allergy Verified 07/07/22 15:15 Review of Systems Review of Systems ROS: Yes All systems reviewed with the patient and are negative except as otherwise documented Exam Vital Signs (past 8 hours): - 07/07/22 15:03 07/07/22 15:04 07/07/22 15:04 Temperature Pulse Rate 94 H 94 H Respiratory Rate 15 23 Blood Pressure 267/142 H Pulse Oximetry 96 96 Oxygen Delivery Method 07/07/22 15:05 07/07/22 15:06 07/07/22 15:06 Temperature Pulse Rate 98 H 98 H Respiratory Rate 23 21 Blood Pressure 277/143 H Pulse Oximetry 96 96 Oxygen Delivery Method 07/07/22 14:58 07/07/22 15:08 07/07/22 15:08 Temperature 98.0 F Pulse Rate 96 H 96 H Respiratory Rate 18 21 Blood Pressure 265/140 H 254/149 H Pulse Oximetry 96 96 Oxygen Delivery Method Room Air Room Air 07/07/22 15:10 07/07/22 15:15 07/07/22 15:19 Temperature Pulse Rate 91 H 85 78 Respiratory Rate 21 19 29 H Blood Pressure Pulse Oximetry 97 96 93 Oxygen Delivery Method Room Air Room Air Room Air 07/07/22 15:19 07/07/22 15:20 07/07/22 15:21 Temperature Pulse Rate 69 69 Respiratory Rate 23 22 Blood Pressure 212/108 H Pulse Oximetry 96 94 Oxygen Delivery Method Room Air Room Air 07/07/22 15:21 07/07/22 15:25 07/07/22 15:25 Temperature Pulse Rate 72 Respiratory Rate 20 Blood Pressure 216/116 H 202/101 H Pulse Oximetry 94 Oxygen Delivery Method Room Air 07/07/22 15:36 07/07/22 15:37 07/07/22 15:37 Temperature Pulse Rate 69 71 Respiratory Rate 19 20 Blood Pressure 212/135 H Pulse Oximetry 97 96 Oxygen Delivery Method Room Air Room Air 07/07/22 15:40 07/07/22 15:41 07/07/22 15:41 Temperature Pulse Rate 72 71 Respiratory Rate 16 24 Blood Pressure 212/114 H Pulse Oximetry 96 96 Oxygen Delivery Method Room Air Room Air 07/07/22 15:50 07/07/22 15:50 07/07/22 15:55 Temperature Pulse Rate 69 Respiratory Rate 22 Blood Pressure 210/120 H 200/107 H Pulse Oximetry 97 Oxygen Delivery Method 07/07/22 15:55 07/07/22 16:00 07/07/22 16:00 Temperature Pulse Rate 66 66 Respiratory Rate 21 18 Blood Pressure 196/106 H Pulse Oximetry 97 96 Oxygen Delivery Method Room Air 07/07/22 16:05 07/07/22 16:05 07/07/22 16:10 Temperature Pulse Rate 67 Respiratory Rate 18 Blood Pressure 193/104 H 196/109 H Pulse Oximetry 96 Oxygen Delivery Method 07/07/22 16:10 07/07/22 16:15 07/07/22 16:15 Temperature Pulse Rate 67 65 Respiratory Rate 20 17 Blood Pressure 177/98 H Pulse Oximetry 97 96 Oxygen Delivery Method 07/07/22 16:20 07/07/22 16:21 07/07/22 16:21 Temperature Pulse Rate 65 63 Respiratory Rate 20 17 Blood Pressure 199/100 H Pulse Oximetry 97 97 Oxygen Delivery Method 07/07/22 16:25 07/07/22 16:25 07/07/22 16:30 Temperature Pulse Rate 64 Respiratory Rate 19 Blood Pressure 195/102 H 196/106 H Pulse Oximetry 97 Oxygen Delivery Method 07/07/22 16:30 07/07/22 16:35 07/07/22 16:35 Temperature Pulse Rate 67 63 Respiratory Rate 19 16 Blood Pressure 193/111 H Pulse Oximetry 97 98 Oxygen Delivery Method 07/07/22 16:40 07/07/22 16:40 07/07/22 16:45 Temperature Pulse Rate 62 Respiratory Rate 16 Blood Pressure 168/95 H 176/99 H Pulse Oximetry 96 Oxygen Delivery Method 07/07/22 16:45 07/07/22 16:50 07/07/22 16:50 Temperature Pulse Rate 61 60 Respiratory Rate 14 14 Blood Pressure 165/92 H Pulse Oximetry 97 96 Oxygen Delivery Method 07/07/22 16:55 07/07/22 16:55 07/07/22 17:00 Temperature Pulse Rate 60 Respiratory Rate 15 Blood Pressure 160/87 H 161/90 H Pulse Oximetry 96 Oxygen Delivery Method 07/07/22 17:00 07/07/22 17:05 07/07/22 17:05 Temperature Pulse Rate 59 L 59 L Respiratory Rate 15 17 Blood Pressure 153/88 H Pulse Oximetry 96 96 Oxygen Delivery Method Room Air 07/07/22 17:10 07/07/22 17:10 07/07/22 17:15 Temperature Pulse Rate 59 L Respiratory Rate 14 Blood Pressure 155/90 H 161/92 H Pulse Oximetry 96 Oxygen Delivery Method 07/07/22 17:15 07/07/22 17:20 07/07/22 17:20 Temperature Pulse Rate 58 L 58 L Respiratory Rate 14 15 Blood Pressure 165/91 H Pulse Oximetry 96 96 Oxygen Delivery Method 07/07/22 17:25 07/07/22 17:25 07/07/22 17:30 Temperature Pulse Rate 58 L Respiratory Rate 13 Blood Pressure 162/90 H 166/93 H Pulse Oximetry 96 Oxygen Delivery Method 07/07/22 17:30 07/07/22 17:35 07/07/22 17:36 Temperature Pulse Rate 57 L 58 L 58 L Respiratory Rate 13 16 15 Blood Pressure Pulse Oximetry 96 98 99 Oxygen Delivery Method 07/07/22 17:36 07/07/22 17:40 07/07/22 17:40 Temperature Pulse Rate 57 L Respiratory Rate Blood Pressure 185/105 H 187/106 H Pulse Oximetry 98 Oxygen Delivery Method 07/07/22 17:45 07/07/22 17:45 07/07/22 17:50 Temperature Pulse Rate 58 L Respiratory Rate 11 L Blood Pressure 189/107 H 190/100 H Pulse Oximetry 98 Oxygen Delivery Method 07/07/22 17:50 07/07/22 17:55 07/07/22 17:55 Temperature Pulse Rate 58 L 56 L Respiratory Rate 15 13 Blood Pressure 178/100 H Pulse Oximetry 98 97 Oxygen Delivery Method 07/07/22 18:00 07/07/22 18:00 07/07/22 18:05 Temperature Pulse Rate 56 L 62 Respiratory Rate 13 15 Blood Pressure 174/100 H Pulse Oximetry 97 98 Oxygen Delivery Method Room Air 07/07/22 18:06 07/07/22 18:06 07/07/22 18:10 Temperature Pulse Rate 60 Respiratory Rate Blood Pressure 204/100 H 201/104 H Pulse Oximetry 98 Oxygen Delivery Method 07/07/22 18:10 07/07/22 18:15 07/07/22 18:15 Temperature Pulse Rate 61 58 L Respiratory Rate 13 Blood Pressure 196/105 H Pulse Oximetry 98 99 Oxygen Delivery Method 07/07/22 18:20 07/07/22 18:20 07/07/22 18:25 Temperature Pulse Rate 60 Respiratory Rate 19 Blood Pressure 194/103 H 182/97 H Pulse Oximetry 98 Oxygen Delivery Method 07/07/22 18:25 07/07/22 18:30 07/07/22 18:30 Temperature Pulse Rate 60 61 Respiratory Rate 16 15 Blood Pressure 188/100 H Pulse Oximetry 98 98 Oxygen Delivery Method Room Air 07/07/22 18:35 07/07/22 18:35 07/07/22 18:40 Temperature Pulse Rate 62 Respiratory Rate 18 Blood Pressure 195/110 H 197/110 H Pulse Oximetry 99 Oxygen Delivery Method 07/07/22 18:40 07/07/22 18:45 07/07/22 18:46 Temperature Pulse Rate 60 68 70 Respiratory Rate 19 17 21 Blood Pressure Pulse Oximetry 98 99 99 Oxygen Delivery Method 07/07/22 18:46 07/07/22 18:50 07/07/22 18:51 Temperature Pulse Rate 67 65 Respiratory Rate 22 21 Blood Pressure 225/118 H Pulse Oximetry 99 99 Oxygen Delivery Method 07/07/22 18:51 07/07/22 18:55 07/07/22 18:56 Temperature Pulse Rate 62 Respiratory Rate 20 Blood Pressure 217/116 H 215/109 H Pulse Oximetry 98 Oxygen Delivery Method 07/07/22 18:56 07/07/22 19:19 07/07/22 19:00 Temperature Pulse Rate 61 60 Respiratory Rate 20 Blood Pressure 181/100 H 206/100 H Pulse Oximetry 98 Oxygen Delivery Method Room Air 07/07/22 19:00 07/07/22 19:05 07/07/22 19:05 Temperature Pulse Rate 59 L 59 L Respiratory Rate 18 17 Blood Pressure 198/99 H Pulse Oximetry 98 98 Oxygen Delivery Method Room Air Room Air 07/07/22 19:10 07/07/22 19:10 07/07/22 19:15 Temperature Pulse Rate 58 L Respiratory Rate 16 Blood Pressure 195/104 H 195/110 H Pulse Oximetry 98 Oxygen Delivery Method 07/07/22 19:15 07/07/22 19:20 07/07/22 19:20 Temperature Pulse Rate 59 L 60 Respiratory Rate 16 14 Blood Pressure 181/100 H Pulse Oximetry 99 98 Oxygen Delivery Method 07/07/22 19:23 07/07/22 19:23 07/07/22 19:25 Temperature Pulse Rate 62 Respiratory Rate 14 Blood Pressure 184/96 H 182/96 H Pulse Oximetry 97 Oxygen Delivery Method 07/07/22 19:25 07/07/22 19:28 07/07/22 19:28 Temperature Pulse Rate 62 65 Respiratory Rate 17 18 Blood Pressure 184/103 H Pulse Oximetry 97 97 Oxygen Delivery Method 07/07/22 19:30 07/07/22 19:31 07/07/22 19:31 Temperature Pulse Rate 76 81 Respiratory Rate 26 H Blood Pressure 196/138 H Pulse Oximetry 97 97 Oxygen Delivery Method 07/07/22 19:35 07/07/22 19:36 07/07/22 19:36 Temperature Pulse Rate 64 66 Respiratory Rate 22 19 Blood Pressure 189/103 H Pulse Oximetry 97 97 Oxygen Delivery Method 07/07/22 19:40 07/07/22 19:41 07/07/22 19:41 Temperature Pulse Rate 76 78 Respiratory Rate 23 22 Blood Pressure 222/118 H Pulse Oximetry 98 97 Oxygen Delivery Method 07/07/22 19:45 07/07/22 19:46 07/07/22 19:46 Temperature Pulse Rate 74 72 Respiratory Rate 18 18 Blood Pressure 199/106 H Pulse Oximetry 98 98 Oxygen Delivery Method Room Air 07/07/22 19:50 07/07/22 19:50 07/07/22 19:55 Temperature Pulse Rate 67 Respiratory Rate 21 Blood Pressure 201/114 H 202/109 H Pulse Oximetry 98 Oxygen Delivery Method 07/07/22 19:55 07/07/22 20:00 07/07/22 20:01 Temperature Pulse Rate 65 73 72 Respiratory Rate 18 23 32 H Blood Pressure Pulse Oximetry 98 99 98 Oxygen Delivery Method 07/07/22 20:01 07/07/22 20:05 07/07/22 20:05 Temperature Pulse Rate 63 Respiratory Rate 15 Blood Pressure 203/105 H 196/103 H Pulse Oximetry 95 Oxygen Delivery Method 07/07/22 20:10 07/07/22 20:10 07/07/22 20:15 Temperature Pulse Rate 64 Respiratory Rate 14 Blood Pressure 196/107 H 196/104 H Pulse Oximetry 97 Oxygen Delivery Method 07/07/22 20:15 07/07/22 20:20 07/07/22 20:20 Temperature Pulse Rate 64 69 Respiratory Rate 15 24 Blood Pressure 201/108 H Pulse Oximetry 97 97 Oxygen Delivery Method 07/07/22 20:25 07/07/22 20:26 07/07/22 20:26 Temperature Pulse Rate 66 66 Respiratory Rate 26 H 11 L Blood Pressure 197/99 H Pulse Oximetry 97 97 Oxygen Delivery Method 07/07/22 20:30 07/07/22 20:30 07/07/22 21:33 Temperature Pulse Rate 71 80 Respiratory Rate 26 H Blood Pressure 186/97 H 178/102 H Pulse Oximetry 96 Oxygen Delivery Method Oxygen Delivery Method Room Air Narrative Exam Narrative: Gen: Alert, oriented, obese 62 y.o. male, NAD HEENT: normocephalic, atraumatic, conjunctiva clear, sclera non-icteric, oral mucosa pink and moist Neck: supple, full ROM, no JVD, trachea is midline Resp: Lungs CTA, non-labored breathing CV: RRR, no murmur or rubs Abd: soft, non-tender, normoactive BTs Skin: no lesions or rashes, dry and intact Neuro: Alert and oriented X 4 w/no focal deficits. Speech clear and coherent. Extremities: moves all 4 extremities, is ambulatory, negative Subhash?s sign Psyche: normal mood and affect. Objective Labs Result Diagrams: 07/07/22 15:08 07/07/22 15:08 Labs: Laboratory Results - last 24 hr 07/07/22 07/07/22 07/07/22 15:08 15:08 15:08 WBC 7.6 RBC 5.51 Hgb 17.1 Hct 49.4 MCV 89.6 MCH 31.1 MCHC 34.7 RDW 14.3 Plt Count 224 Neut % (Auto) 67.4 Lymph % (Auto) 24.0 L Forest % (Auto) 7.4 Eos % (Auto) 0.6 L Baso % (Auto) 0.6 Neut # (Auto) 5200 Lymph # (Auto) 1800 Forest # (Auto) 600 Eos # (Auto) 0 Baso # (Auto) 0 Sodium 137 Potassium 3.3 L Chloride 104 Carbon Dioxide 23 BUN 17 Creatinine 0.93 Estimated GFR > 60 BUN/Creatinine Ratio 18.3 Glucose 236 H Hemoglobin A1c Calcium 8.5 Magnesium 2.3 Total Bilirubin 0.9 AST 35 ALT 33 Alkaline Phosphatase 158 H Total Creatine Kinase 106 CK-MB (CK-2) 1.56 CK-MB (CK-2) Rel Index 1.5 Troponin I 0.040 H Total Protein 7.9 Albumin 4.4 Globulin 3.5 Albumin/Globulin Ratio 1.3 Lipase 73 TSH 4.25 SARS-CoV-2 (PCR) 07/07/22 07/07/22 15:08 19:47 WBC RBC Hgb Hct MCV MCH MCHC RDW Plt Count Neut % (Auto) Lymph % (Auto) Forest % (Auto) Eos % (Auto) Baso % (Auto) Neut # (Auto) Lymph # (Auto) Forest # (Auto) Eos # (Auto) Baso # (Auto) Sodium Potassium Chloride Carbon Dioxide BUN Creatinine Estimated GFR BUN/Creatinine Ratio Glucose Hemoglobin A1c 6.9 H Calcium Magnesium Total Bilirubin AST ALT Alkaline Phosphatase Total Creatine Kinase CK-MB (CK-2) CK-MB (CK-2) Rel Index Troponin I Total Protein Albumin Globulin Albumin/Globulin Ratio Lipase TSH SARS-CoV-2 (PCR) Negative Assessment & Plan Assessment & Plan narrative: Morgan Lai is admitted to the inpatient service for a hypertensive emergency. Hypertensive emergency, malignant, present on admission * Initial systolic was 265 * Goal bp 25% reduction in systolic =200 or below to allow for adequate brain perfusion * Due to fluctuating blood pressures, have ordered a renal ultrasound to rule out ZENIA * Normally takes amlodipine 10 mg, losartan 50 mg, metoprolol succinate 100 mg po bid and these will be continued in the am. It appears he has not been taking. * Echo in the am. CAD, historical * He had cardiac stents placed approximately 10 years ago * Was previously taking plavix, 75 mg and isosoribide mononitrate 30 mg po daily will continue Hyperlipidemia, chronic * Continue home dose of atorvastatin, this will be continued Diabetes type 2, well controlled with an A1c of 6.9% * Holding orals * Glargine 5 units at bedtime medium dose correctional scale insulin. VTE Prophylaxis: Wells risk score 0 X Enoxaparin 40 mg subQ once daily Bilateral SCDs Patient is admitted to the inpatient service due to the severity of disease, risks of further disease progression and this stay is expected to exceed 2 midnights. FEN: IV fluids: saline lock, diet: Carb controlled labs: CBC, C/BMP, liver enzym es, Mag, PT/INR Consultants None Dispo: probable d/c to home Code status: Full code as discussed with the patient who identifies his brother, Pete as his surrogate and POA. [X] I have utilized all available immediate resources to obtain, update, or review of the patient's current medications VTE Deep Vein Thrombosis/Pulmonary Embolism Present on Admission: No MIPS - Admit I confirm the patient?s Advance Care Plan is present, Code status is documented, Surrogate decision maker is in patient?s record: Yes MIPS - DC The patient has current or prior documentation of left ventricular ejection fraction (LVEF) less than 40%, or moderate or severely depressed left ventricular systolic function.: No COVID-19 COVID-19 status: Negative Result date/Date tested (Pos, Neg/Pending): 07/07/22
[2022-07-07] MEDS: INSULIN GLARGINE 100 UNIT/ML 3ML PEN SUBCUT (22:31)
[2022-07-07 22:37] LABS: UR Morphine/Opiate cutoff 300 Positive (Negative); Ur Creatinine 50 (Normal); Ur Specific Gravity >1.030 (Normal); Urine Amphetamines Negative (Negative); Urine Barbiturates Negative (Negative); Urine Benzodiazepines Negative (Negative); Urine Cocaine Negative (Negative); Urine MDMA Negative (Negative); Urine Methadone Negative (Negative); Urine Methamphetamines Negative (Negative); Urine Oxycodone Negative (Negative); Urine Phencyclidine Negative (Negative); Urine Tetrahydrocannabinol Negative (Negative); Urine Tricyclic Antidepressant Negative (Negative); Urine pH 5 (Normal)
[2022-07-07] MEDS: AMLODIPINE 5 MG TABLET PO (22:40)
[2022-07-07 23:01] LABS: Troponin I 0.036 ng/mL (0.01-0.034)
[2022-07-08] VITALS (30 sets, daily range): BP systolic 96–211; BP diastolic 54–125; PULSE 56–84; RESP 11–26; TEMP 36.4–36.8; O2SAT 95–98
[2022-07-08 01:03] LABS: Color Urine UA YELLOW
[2022-07-08 01:04] LABS: Appearance Urine UA Clear; Bilirubin Urine UA NEGATIVE (NEGATIVE); Glucose Urine UA 1+ g/dL (Negative); Ketones Urine UA NEGATIVE (NEGATIVE); Nitrite Urine UA NEGATIVE (Negative); Occult Blood Urine UA NEGATIVE (Negative); Protein Urine UA 1+ (Negative); Specific Gravity Urine UA >=1.030 (1.000-1.035); Urobilinogen Urine UA 0.2 E.U./dL (0.2)
[2022-07-08 01:05] LABS: Bacteria Urine None Seen; Culture Indicated Urine Cult Not Indicated; Leukocyte Esterase Urine UA NEGATIVE (NEGATIVE); Mucus Urine 3+ (Negative); RBC Urine None Seen (0-5/HPF); WBC Urine None Seen (0-5/HPF)
[2022-07-08] MEDS: ACETAMINOPHEN 325 MG TABLET 650 MG PO (02:14)
[2022-07-08] MEDS: KETOROLAC 30 MG/ML VIAL 15 MG IV (02:49)
[2022-07-08 03:16] LABS: Add Manual Diff / Slide Review NO; Basophils Absolute Auto 100 /uL (0-100); Eosinophils Absolute Auto 100 /uL (0-450); Eosinophils Percent Auto 1.5 % (2-4); Hematocrit 43.7 % (41-53); Hemoglobin 15.2 g/dL (13.5-17.5); Lymphocytes Absolute Auto 1800 /uL (1100-4500); Lymphocytes Percent Auto 26.5 % (25-40); Mean Corpuscular HGB Conc 34.7 % (30-36); Mean Corpuscular Hemoglobin 31.2 PG (26-34); Mean Corpuscular Volume 89.9 fL (80-100); Monocytes Absolute Auto 500 /uL (0-900); Monocytes Percent Auto 7.2 % (3-14); Neutrophils Absolute Auto 4400 /uL (1500-7000); Neutrophils Percent Auto 63.8 % (50-75); Platelet Count 204 X10^3/uL (150-400); Red Blood Cell Count 4.86 X10^6/uL (4.5-5.9); Red Cell Distribution Width 14.3 % (11.6-14.8); White Blood Cell Count 6.9 X10^3/uL (4.5-11.0)
[2022-07-08 03:24] LABS: Cholesterol 231 mg/dL (140-199); HDL Cholesterol 54 mg/dL (40-60); LDL Cholesterol Calculated 145 mg/dL (<100); Triglycerides 160 mg/dL (35-150)
[2022-07-08 03:25] LABS: Alanine Aminotransferase 31 IU/L (<50); Albumin 3.7 g/dL (3.5-5.0); Albumin Globulin Ratio 1.3 (1.0-2.8); Alkaline Phosphatase 85 U/L (38-126); Aspartate Aminotransferase 36 IU/L (17-59); BUN Creatinine Ratio 21.8 (6-22); Bilirubin Total 0.9 mg/dL (0.2-1.3); Blood Urea Nitrogen 19 mg/dL (9-20); Calcium 8.1 mg/dL (8.4-10.2); Carbon Dioxide 25 mmol/L (22-32); Chloride 105 mmol/L (98-107); Estimated Glomerular Filt Rate > 60 mL/min (>60); Globulin 2.9 g/dL (1.7-4.1); Glucose 136 mg/dL (80-110); HEMOLYSIS 23 (0-50); Magnesium 2.1 mg/dL (1.6-2.3); Potassium 3.4 mmol/L (3.4-5.1); Sodium 136 mmol/L (137-145); Total Protein 6.6 g/dL (6.3-8.2)
[2022-07-08 03:37] LABS: Troponin I 0.032 ng/mL (0.01-0.034)
[2022-07-08] MEDS: CLOPIDOGREL 75 MG TABLET PO (08:14)
[2022-07-08] MEDS: ISOSORBIDE MONONITRATE ER 30 MG TABLET PO (08:14)
[2022-07-08] MEDS: ASPIRIN EC 81 MG TABLET PO (08:14)
[2022-07-08] MEDS: AMLODIPINE 5 MG TABLET 10 MG PO (08:14)
[2022-07-08] MEDS: carvediloL 12.5 MG TABLET 25 MG PO (08:14)
[2022-07-08] MEDS: ENOXAPARIN 40 MG/0.4 ML SYRINGE SUBCUT (08:14)
[2022-07-08] MEDS: LOSARTAN 50 MG TABLET PO (08:14)
[2022-07-08] MEDS: CHLORTHALIDONE 25 MG TABLET 12.5 MG PO (08:15)
[2022-07-08] MEDS: INSULIN LISPRO 100 UNIT/ML 3ML VIAL SUBCUT ×2 (08:39→12:21)
[2022-07-08] MEDS: SODIUM CHLORIDE 0.9% 500 ML 1000 ML IV (09:45)
--- NOTE | 2022-07-08 10:53 | CM.DANOTE ---
DCP: Case received, EMR reviewed and met with patient. Introduced self and role. Was able to obtain information regarding patient's baseline activity status prior to hospitalization. DCP assessment completed with information currently available. Patient is a 62 year old male who admitted yesterday evening to the care of the hospitalist team. PCP: Dr. Del Valle at [facility]. Payer: confirmed: [employer] HMO. Patient came to the hospital via private vehicle secondary to having a headache and high blood pressure. Patient has history of HTN, has been here before for the same issues. Patient also complaining of dizziness and blurry vision, and chest discomfort. Patient was admitted for hypertensive emergency. Met with patient in his room. He is alert and oriented, he had been here last month. Patient resides alone in [place]. He is independent at his baseline, and he recently retired from [employer]. Confirmed with him that he does have a provider at the [facility]. He did state that he has been taking his meds, but some of them he has to pay for, and is getting expensive. Patient does have [employer] Medicare, he stated, he used to have [employer], and he has been able to speak to family preservation caseworker at his current insurance company. P: DCP to continue to follow for any needs. Patient should be able to go home when he is deemed medically stable. Nancie Osorio RN/Respiratory Clinician Discharge Planning/Care Management CM Discharge Assessment Start: 07/08/22 10:52 Freq: Status: Active Protocol: Document 07/08/22 10:52 (Rec: 07/08/22 10:53 [id number]) Discharge Planning Assessment Assigned Interpreter And Translator Nancie Osorio RN/Respiratory Clinician Advance Directives? No History Provided By Patient,Medical Record Prior Living Arrangements Mobile home Household Members none Type of transporation used prior to Drives own vehicle admit Independent with ADL's Yes Is patient alert and oriented? Yes Caregiver for Another No Barriers to Discharge No Discharge Plan Home Transportation Arrangement Friend Referrals Initiated None needed Whiteboard Updated in Patient Room with Yes name and ext. # of Interpreter And Translator Review Status In Process Next Review Type Continued Stay Review
[2022-07-08] MEDS: POTASSIUM CHLORIDE 20 MEQ TAB 40 MEQ PO (11:01)
--- NOTE | 2022-07-08 12:05 | PC.NURSE ---
Patient states his headache has been improving today. He states that he also gets headaches frequently from his screws in my neck and wasn't sure if this was the cause or not. After giving AM doses of scheduled BP meds patient's blood pressure changed to 96/54. Patient denies complaints at this time, but Dr. Stein notified of this change and 500cc NS bolus IV ordered and given. See vital signs sheet for continued numbers, Will continue to monitor. Patient currently eating lunch, tolerating well. Using urinal independently, and agrees to try a walk after lunch. call light within reach.
--- NOTE | 2022-07-08 16:44 | P.DS_ITS ---
History of Present Illness History of Present Illness Date Patient Seen: 07/07/22 Time Patient Seen: 22:08 Chief complaint: BP extremely high Narrative: Per admitting provider: Morgan Lai is a 62 y.o. male ?past medical history of CAD, hypertension who presented to the emergency room with complaints of a headache, chest pressure and suspected high blood pressure. He states that he is had a longstanding problem with elevated blood pressures since he was 39 and that they are always adjusting his medications. He also has a complaint of a recent fall and has reproducible bilateral rib pain. Apparently he did report blurry vision to the ED provider but not me. He says that he is short of breath with the chest pain, denies nausea vomiting, abdominal pain, dysuria, diarrhea or constipation. He states his last visit to his PCP was 1 month ago. He sees Dr. Panda Del Valle in [place]. Both a chest x-ray and the CT of the head ordered in the emergency department reported negative findings. His presenting blood pressure in the ED was 265/140 it is currently 178/102. He is afebrile, his heart rate is 80 respiratory rate 26 oxygen saturation of 96% on room air he weighs 102.5 kg with a BMI of 34.7. CBC is unremarkable, potassium was 3.3 glucose 236 with an A1c of 6.9, troponin was initially 0.040 and it is come down to 0.036, UA and tox screen is only positive for opiates which is likely due to meds given in the emergency department, COVID-19 PCR is negative. FH: Reviewed with the patient and father of an [place] at age 54, mother age 78 with heart problems, was a chain smoker, and of cancer primary unknown to the patient updated as below. Discharge Providers Provider Date of admission: 07/07/22 19:55 Discharge Date: 07/08/22 Consults: 07/07/22 23:51 Consult to Public Health Service Officer Routine Comment: Discharge provider: Russell Lugo MD Summary Hospital Course Discharge Diagnosis: 1. Hypertensive urgency 2. CAD 3. Hyperlipidemia 4. Type 2 Diabetes 5. Cardiac demand ischemia Hospital Course: Mr. Lai was admitted with significantly elevated blood pressure. He was initially given IV medications. He states he never misses any medications at home. As soon as his home regimen of blood pressure medications was restarted his blood pressure dropped from greater than 200s systolic to the 90s systolic. This was only with oral medication. His blood pressure was quite responsive to oral treatment. He initially had a headache but this improved. He had reproducible chest pain when palpating his rib on both sides of his chest. His troponin only became slightly elevated secondary to high blood pressure. He would likely benefit from additional help with his medication and adherence to a good regimen. He declined social work or any home health. He was encouraged to follow up with his PCP as he has not seen the PCP in nearly a year. He had an ECHO done which showed an EF of 40-45% with mild globabl hypokinesis that was slightly changed from prior. He states he has had a recent stress test that he said was reassuring. He was given a prescription for every blood pressure medication that was prescribed by his PCP to ensure he could take them at home. Exam Vital Signs (past 8 hours): Oxygen Delivery Method Room Air Oxygen Flow Rate 0 Narrative Exam Narrative: GEN: no acute distress CV: regular rate and rhythm PULM: clear bilaterally Objective Labs Result Diagrams: 07/08/22 03:00 07/08/22 03:00 [facility] Medical History CAD (coronary artery disease) HTN (hypertension) Surgical History H/O heart artery stent History of appendectomy Family History Brother Diabetes mellitus Father Diabetes mellitus Mother Diabetes mellitus Social History household members: none Smoking Status: Never smoker alcohol intake: current Discharge Plan Discharge Plan Patient Disposition: Home Provider Discharge Comment: Mr. Lai came in with very high blood pressure. It came under control with blood pressure pills. He was discharged with a prescription for all the blood pressure medicines he received in the hospital. He should follow up with his primary doctor within the next few days. Discharge orders & Medications Prescriptions: Continued metformin 500 mg Tablet 1,000 mg PO BID atorvastatin 80 mg Tablet 80 mg PO DAILY aspirin 325 mg Tablet 162.5 mg PO DAILY glipizide 10 mg Tablet 10 mg PO BID pantoprazole 40 mg Tablet,Delayed Release (Dr/Ec) 40 mg PO DAILY nitroglycerin [Nitrostat] 0.4 mg Tablet, Sublingual 0.4 mg sublingual Q5M PRN (Reason: Chest Pain) clopidogrel 75 mg Tablet 75 mg PO DAILY neomycin-polymyxin B-dexameth [Maxitrol] 3.5mg/mL-10,000 unit/mL-0.1 % Drops,Suspension 1 drp EYE-BOTH DAILY gabapentin 300 mg Capsule 300 mg PO TID carboxymethylcellulose sodium 1 % Drops 1 drp OPHTHALMIC (EYE) 4XD PRN (Reason: Dry Eyes) losartan 50 mg Tablet 50 mg PO DAILY Qty: 30 0RF isosorbide mononitrate 30 mg Tablet Extended Release 24 Hr 30 mg PO DAILY Qty: 30 0RF metoprolol succinate 100 mg Tablet Extended Release 24 Hr 100 mg PO BID Qty: 60 0RF chlorthalidone 25 mg Tablet 12.5 mg PO DAILY Qty: 30 0RF amlodipine 10 mg Tablet 10 mg PO DAILY Qty: 30 0RF Follow up/Referrals: Panda Del Valle MD [Non-Staff] - 3-5 Days (please call when you get home & schedule a follow up appointment with your primary care physcian for: hypertension, hospitalized within 3-5 days of discharge ) Diet/Activity/Treatments Diet: Regular Visit Report/Discharge Packet Instructions: Malignant Hypertension, Chlorthalidone, Isosorbide, Metoprolol, Amlodipine, Losartan Discharge Data Attending Provider: Sandy Zepeda [facility] Deep Vein Thrombosis/Pulmonary Embolism Present on Admission: No
--- NOTE | 2022-07-08 18:01 | PC.NURSE ---
Discharge order received and patient ready to go. States this has happened like 15 times and no one can really figure it out. [employer] unable to schedule follow up appointment as PCP office closed when discharge order received. Patient states he will call their office tomorrow and get follow up appointment scheduled to be seen in 3-5 days. IV's (2) dc'd intact. Patient has no other questions or concerns at this time, and states i have the monitor to check by sugars and my blood pressure at home. Patient escorted out via wheelchair with all his belongings to home with a friend.
== END 2022-07-08 17:35 | disposition home or self-care (01) ==
LOC: ED 19:53 → ICU 07-08 08:07 → AC 07-09 13:50
PROVIDERS: Admitting Provider Nurse Practitioner Family; Emergency Provider Emergency Medicine; Referring Provider Emergency Medicine; Visit Provider Nurse Practitioner Family
DX: I16.1 Hypertensive emergency (principal); I25.89 Other forms of chronic ischemic heart disease; I10 Essential (primary) hypertension; R51.9 Headache, unspecified; I25.10 Atherosclerotic heart disease of native coronary artery without angina pectoris; E78.5 Hyperlipidemia, unspecified; E11.9 Type 2 diabetes mellitus without complications; Z79.84 Long term (current) use of oral hypoglycemic drugs; Z20.822 Contact with and (suspected) exposure to COVID-19
CPT/HCPCS: 36415; 70450; 71045; 80053; 80061; 80305; 81001; 82550; 82553; 82962; 83036; 83690; 83735; 84443; 84484; 85025; 87635; 87797; 93005; 93010; 93306; 96361; 96372; 96374; 96375; 99285; 99291; C9803; G0378; J0360; J1170; J1200; J1650; J1815; J1885; J2270; J2765